=== PATIENT | male | born 1935 | race Caucasian/White ===

== ENCOUNTER 2019-08-07 11:56 | Inpatient (IN) | payer MEDICARE, BC, SELFPAY ==
[2019-08-07] VITALS (14 sets, daily range): BP systolic 94–126; BP diastolic 46–75; PULSE 67–92; RESP 14–27; TEMP 36.3–36.9; O2SAT 90–100; BMI 20.1
--- NOTE | 2019-08-07 11:59 | ED_ITS ---
Entered by Leia Cordero, acting as scribe for Ginger Abdullahi Joni HPI - SOB/Dyspnea General: Chief Complaint: Shortness of Breath/Dyspnea Stated Complaint: Shortness of Breath Time Seen by Provider: 08/07/19 11:57 Source: patient and EMS Mode of arrival: EMS Limitations: no limitations and physical limitation History of Present Illness: HPI Narrative: 84 yo male presents to ED with complaints of shortness of breath. The patient states he is normally short of breath but he woke this morning with worsening symptoms with lower extremity swelling. The patient is a resident of [facility]. He is normally on 2L oxygen but was placed on 4L while in ambulance, which improved his shortness of breath. The patient states he is more concerned with his swollen lower legs than his shortness of breath. MD elicited complaint: shortness of breath Onset (ago): hour(s) Timing: constant Severity: severe Exacerbating factors: lying flat, exertion, movement, coughing, inspiration and talking Relieving factors: oxygen Associated symptoms: Reports chest congestion and other (lower extremity swelling); Deny abdominal pain, chest pain, diaphoresis, dizziness, extremity pain, fever(s), hemoptysis, nausea, orthopnea, palpitations, polydipsia, syncope or vomiting Treatment prior to arrival: oxygen Related Data: Home oxygen amount: 2 liters Review of Systems General: Reports: other (negative unless marked) Const: Denies: fever, chills, body aches, fatigue, malaise or diaphoresis Eyes: Denies: change in vision or blurry vision ENMT: Denies: throat pain, painful swallowing, hoarseness, ear pain, ear discharge, Change in hearing or nasal discharge Card: Denies: chest pain, palpitations, irregular heart rhythm, syncope, pre- syncope, shortness of breath on exertion or shortness of breath when lying down Resp: Reports: shortness of breath, productive cough, wheezing, change in phlegm color and chest congestion; Denies: coughing up blood GI: Denies: abdominal pain, nausea, vomiting, vomiting blood, coffee grounds in vomit, diarrhea, constipation, cramping, blood in stool or black tarry stool : Denies: flank pain, difficulty urinating, painful urination, urinary frequency, urinary urgency, decreased urine ouput, urinary incontinence or blood in urine Musc: Denies: neck pain, back pain, extremity pain, joint pain, joint swelling, joint warmth or joint stiffness Skin/Breast: Denies: rash, skin tenderness or yellow skin Neuro: Denies: headache, numbness in extremities, weakness in extremities, changes in sensation, lack of coordination, difficulty walking, dizziness, vertigo or confusion Endo: Denies: excessive thirst, tired all the time, cold intolerance, excessive sweating, flushing or hot flashes Alexey/Lymph: Denies: easy bruising, easy bleeding, petechiae or enlarged lymph nodes All/Imm: Denies: hives, throat swelling, tongue swelling, facial swelling or acute wheezing PFSH ED PFSH: Statuses (acute, chronic, etc) shown below reflect problem list status as previously entered and may not be historically accurate Family History Brother Cancer Diabetes CAD (coronary artery disease) Myocardial infarct Father Parkinson disease Social History Smoking and tobacco status: former smoker Alcohol intake: unknown Marital status: Single Physical Exam Resp: EFFORT & INSPECTION: Yes respiratory distress AUSCULTATION: crackles, rhonchi, wheezes and diminished lung sounds Course Vital Signs: Vital signs: Vital Signs Temperature 97.4 F L 08/07/19 11:58 Pulse Rate 84 08/07/19 12:35 Respiratory Rate 20 H 08/07/19 12:35 Blood Pressure 94/46 08/07/19 11:58 Pulse Oximetry 92 08/07/19 12:27 MDM - SOB/Dyspnea MDM Narrative: Medical decision making narrative: Mr. Echeverria is a complex patient with having COPD and congestive heart failure. He also has lung cancer. I see no evidence of DVT on his ultrasound and is not complaining of any sharp chest pain. I do not believe him to have a PE as he has wheezing and orthopnea and no DVT on ultrasound. The patient has no chest pain or hemoptysis. The patient has a cough that is productive of green-colored sputum and I believe his symptoms are most related to a COPD exacerbation. He is refusing an ABG. His kidney function is borderline and I do not believe it would be a good idea to CT his chest as I believe it could hurt his kidneys further. I endorsed the case in full to Dr. Handley he is agreeable to admit the patient for further evaluation and care. Lab Data: Attestation: I reviewed the patient's lab results. Labs: Lab Results 08/07/19 08/07/19 08/07/19 Range/Units 12:18 12:18 12:18 WBC 12.2 H (4.0-10.0) 10^3/ uL RBC 3.63 L (4.1-5.3) 10^6/u L Hgb 10.2 L (11.7-16.6) g/dL Hct 33.1 L (42.0-52.0) % MCV 91.2 (80-94) fL MCH 28.1 (28.0-34.0) pg MCHC 30.8 (30.0-36.0) g/dL RDW 25.7 H (12.1-15.1) % Plt Count 195 (130-400) 10^3/c mm MPV 9.2 (7.4-10.4) fL Neut % (Auto) 78.7 % Lymph % (Auto) 10.9 % [place] % (Auto) 9.1 % Eos % (Auto) 0.6 % Baso % (Auto) 0.3 % Neut # (Auto) 9.6 H (1.8-7.7) 10^3/u L Lymph # (Auto) 1.3 (0.8-4.8) 10^3/u L [place] # (Auto) 1.1 H (0.2-0.9) 10^3/u L Eos # (Auto) 0.1 (0.0-0.8) 10^3/u L Baso # (Auto) 0.0 (0.0-0.1) 10^3/u L Nucleated RBC % (a uto) 0.2 % Nucleated RBCs # 0.0 /100WBC APTT 35.7 (23.9-36.7) SECO NDS Sodium 137 (136-145) mmol/L Potassium 3.9 (3.5-5.1) mmol/L Chloride 98 (98-107) mmol/L Carbon Dioxide 26 (22-29) mmol/L Anion Gap 16.9 (5-19) BUN 32 H (8-23) mg/dL Creatinine 1.6 H (0.7-1.2) mg/dL Glucose 128 H (74-106) mg/dL Lactic Acid (0.5-2.2) mmol/L Calcium 8.9 (8.8-10.2) mg/Dl Magnesium 2.6 H (1.7-2.3) mg/dL Total Bilirubin 0.9 (0.15-1.2) mg/dL AST 17 (0-40) U/L ALT 16 (0-41) U/L Alkaline Phosphata se 98 (40-130) IU/L NT-Pro-B Natriuret Pep 54874 H (0-450) pg/mL Total Protein 5.8 L (6.6-8.7) g/dL Albumin 3.5 (3.5-5.2) g/dL Globulin 2.3 (1.3-4.6) g/dL Urine Color (Yellow) Urine Appearance (CLEAR) Urine pH (5-7) Ur Specific Gravit y (1.005-1.030) Urine Protein (Negative) Urine Glucose (UA) (Normal) Urine Ketones (Negative) Urine Occult Blood (Negative) Urine Nitrate (Negative) Urine Bilirubin (NEGATIVE) Urine Urobilinogen (Negative) mg/dL Ur Leukocyte Anni ase (Negative) Urine RBC (0-2) /hpf Urine WBC (0-5) /hpf Ur Squamous Epith Cells (0-5) Urine Bacteria (NONE) Hyaline Casts 08/07/19 08/07/19 Range/Units 12:18 13:00 WBC (4.0-10.0) 10^3/ uL RBC (4.1-5.3) 10^6/u L Hgb (11.7-16.6) g/dL Hct (42.0-52.0) % MCV (80-94) fL MCH (28.0-34.0) pg MCHC (30.0-36.0) g/dL RDW (12.1-15.1) % Plt Count (130-400) 10^3/c mm MPV (7.4-10.4) fL Neut % (Auto) % Lymph % (Auto) % [place] % (Auto) % Eos % (Auto) % Baso % (Auto) % Neut # (Auto) (1.8-7.7) 10^3/u L Lymph # (Auto) (0.8-4.8) 10^3/u L [place] # (Auto) (0.2-0.9) 10^3/u L Eos # (Auto) (0.0-0.8) 10^3/u L Baso # (Auto) (0.0-0.1) 10^3/u L Nucleated RBC % (a uto) % Nucleated RBCs # /100WBC APTT (23.9-36.7) SECO NDS Sodium (136-145) mmol/L Potassium (3.5-5.1) mmol/L Chloride (98-107) mmol/L Carbon Dioxide (22-29) mmol/L Anion Gap (5-19) BUN (8-23) mg/dL Creatinine (0.7-1.2) mg/dL Glucose (74-106) mg/dL Lactic Acid 2.2 (0.5-2.2) mmol/L Calcium (8.8-10.2) mg/Dl Magnesium (1.7-2.3) mg/dL Total Bilirubin (0.15-1.2) mg/dL AST (0-40) U/L ALT (0-41) U/L Alkaline Phosphata se (40-130) IU/L NT-Pro-B Natriuret Pep (0-450) pg/mL Total Protein (6.6-8.7) g/dL Albumin (3.5-5.2) g/dL Globulin (1.3-4.6) g/dL Urine Color Yellow (Yellow) Urine Appearance Cloudy (CLEAR) Urine pH 6 (5-7) Ur Specific Gravit y 1.010 (1.005-1.030) Urine Protein 1+ H (Negative) Urine Glucose (UA) Norm (Normal) Urine Ketones Negative (Negative) Urine Occult Blood 3+ H (Negative) Urine Nitrate Negative (Negative) Urine Bilirubin Neg (NEGATIVE) Urine Urobilinogen 1 H (Negative) mg/dL Ur Leukocyte Anni ase 2+ H (Negative) Urine RBC 5-10 H (0-2) /hpf Urine WBC Too numerous to c nt H (0-5) /hpf Ur Squamous Epith Cells None (0-5) Urine Bacteria 2+ H (NONE) Hyaline Casts 0-4 H Discharge Plan Discharge Patient Disposition: Admitted As Inpatient Clinical Impression: Acute exacerbation of chronic obstructive airways disease, Congestive heart failure Condition: Stable Prescriptions: No Action amiodarone 100 mg tablet 100 mg PO ONCE RF: 0 aspirin [Adult Low Dose Aspirin] 81 mg tablet,delayed release (DR/EC) 81 mg PO ONCE RF: 0 citalopram 10 mg tablet 10 mg PO ONCE RF: 0 desloratadine 5 mg tablet 5 mg PO ONCE RF: 0 docusate sodium 100 mg capsule 100 mg PO BID RF: 0 esomeprazole magnesium 40 mg capsule,delayed release(DR/EC) 40 mg PO ONCE RF: 0 ferrous sulfate 325 mg (65 mg iron) tablet 325 mg PO BID RF: 0 furosemide 40 mg tablet 40 mg PO BID RF: 0 ipratropium bromide 42 mcg (0.06 %) spray,non-aerosol 2 spray INTRANASAL TID RF: 0 potassium chloride [Klor-Con 10] 10 mEq tablet extended release 20 meq PO BID RF: 0 levothyroxine 112 mcg capsule 112 mcg PO ONCE RF: 0 loratadine [Allergy Relief (loratadine)] 10 mg tablet 10 mg PO ONCE RF: 0 nitroglycerin [Nitrostat] 0.4 mg tablet, sublingual 0.4 mg SUBLINGUAL Q5M PRNRF: 0 oxycodone-acetaminophen [Percocet] 5-325 mg tablet 1 tab PO Q6H PRNRF: 0 rosuvastatin 5 mg tablet 5 mg PO ONCE RF: 0 fluticasone propion-salmeterol [Advair Diskus] 500-50 mcg/dose blister with device 1 inh INHALATION BID RF: 0 Referrals: Edil Vanegas MD [Primary Care Provider] - Coding Level of Care Code ED Ballast Regulator Operator for g Fwd The documentation recorded by the Consuelo rod Valerie R accurately reflects the service I personally performed and the decisions made by Kaylen vazquez Eli N Aug 07, 2019 11:56
--- NOTE | 2019-08-07 12:03 | USCV_ITS ---
Safialakisha Atif Age: 84 Gender: M : 1935 Exam Date: 08/07/2019 12:43 Ordering Phys: Ginger Abdullahi DO Technologist: Alena Neri [place] [facility] [place]ication: SWOLLEN LEGS HISTORY: Swollen Legs PROCEDURES: Venous duplex imaging was performed in bilateral lower extremities. The following venous structures were evaluated: common femoral vein, profunda vein, proximal portion of the greater saphenous vein, superficial femoral vein, and the popliteal vein. In addition, the posterior tibial and peroneal trunk were evaluated. Serial compression, augmentation maneuvers, and spectral Doppler flow evaluation were performed. FINDINGS: No DVT seen in any vessel examined CONCLUSIONS No evidence of right lower extremity DVT. No evidence of left lower extremity DVT. Giles Lea MD (Electronically Signed) Final Date: 07 August 2019 14:21 S
--- NOTE | 2019-08-07 12:05 | XR_ITS ---
WS: [id number] CHEST XRAY TECHNIQUE: Portable chest. CLINICAL INFORMATION: cough COMPARISON: July 01, 2019 FINDINGS: Heart: Cardiomegaly. Sternotomy. Cardiac pacer. Lungs: Chronic emphysematous changes with interstitial infiltrates. No focal pneumonia. Bones: Normal visualized bony structures. XR/XR chest 1V portable [id number] IMPRESSION: 1. Diffuse bilateral interstitial infiltrates suspicious for interstitial pneu monitis. No focal pneumonia. 2. Sternotomy with cardiomegaly
[2019-08-07 12:25] LABS: Basophils % 0.3 %; Eosinophils # 0.1 10^3/uL (0.0-0.8); Eosinophils % 0.6 %; Hematocrit 33.1 % (42.0-52.0); Hemoglobin 10.2 g/dL (11.7-16.6); Lymphocytes # 1.3 10^3/uL (0.8-4.8); Lymphocytes % 10.9 %; Mean Corpuscular HGB Conc 30.8 g/dL (30.0-36.0); Mean Corpuscular Hemoglobin 28.1 pg (28.0-34.0); Mean Corpuscular Volume 91.2 fL (80-94); Mean Platelet Volume 9.2 fL (7.4-10.4); Monocytes # 1.1 10^3/uL (0.2-0.9); Monocytes % 9.1 %; Neutrophils # 9.6 10^3/uL (1.8-7.7); Neutrophils % 78.7 %; Nucleated Red Blood Cells % 0.2 %; Platelet Count 195 10^3/cmm (130-400); Red Blood Count 3.63 10^6/uL (4.1-5.3); Red Cell Distribution Width 25.7 % (12.1-15.1); White Blood Count 12.2 10^3/uL (4.0-10.0)
[2019-08-07] MEDS: ipratropium-albuterol 3 mL Neb 9 ML INHALATION (12:27)
[2019-08-07 12:40] LABS: Partial Thromboplastin Time 35.7 SECONDS (23.9-36.7)
[2019-08-07 12:42] LABS: Lactic Sepsis W/Reflex 2.2 mmol/L (0.5-2.2)
[2019-08-07 12:52] LABS: Alanine Aminotransferase 16 U/L (0-41); Albumin Level 3.5 g/dL (3.5-5.2); Alkaline Phosphatase 98 IU/L (40-130); Anion Gap 16.9 (5-19); Aspartate Amino Transferase 17 U/L (0-40); Blood Urea Nitrogen 32 mg/dL (8-23); Calcium 8.9 mg/Dl (8.8-10.2); Carbon Dioxide 26 mmol/L (22-29); Chloride 98 mmol/L (98-107); Globulin 2.3 g/dL (1.3-4.6); Glucose 128 mg/dL (74-106); Magnesium 2.6 mg/dL (1.7-2.3); NT Pro B Type Natriuretic Pept 10886 pg/mL (0-450); Potassium 3.9 mmol/L (3.5-5.1); Sodium 137 mmol/L (136-145); Total Bilirubin 0.9 mg/dL (0.15-1.2); Total Protein 5.8 g/dL (6.6-8.7)
[2019-08-07 13:13] LABS: Urine Appearance Cloudy (CLEAR); Urine Color Yellow (Yellow); pH Urine 6 (5-7)
[2019-08-07 13:14] LABS: Bilirubin Urine Neg (NEGATIVE); Blood Urine 3+ (Negative); Glucose Urine UA Norm (Normal); Ketones Urine Negative (Negative); Leukocyte Esterase Urine 2+ (Negative); Nitrate Urine Negative (Negative); Protein Urine 1+ (Negative); Urobilinogen Urine 1 mg/dL (Negative)
[2019-08-07] MEDS: FUROsemide 10 mg/mL SDV 4mL 40 MG IVP ×2 (13:21→22:02)
[2019-08-07 13:27] LABS: WBC Urine TOO NUMEROUS TO CNT /hpf (0-5)
[2019-08-07 13:28] LABS: Bacteria Urine 2+; Hyaline Casts Urine 0-4
[2019-08-07 13:29] LABS: Add Urine Culture? Yes
[2019-08-07 14:10] LABS: Reflex Lactate Order Y
--- NOTE | 2019-08-07 15:02 | P.HP_ITS ---
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 Patient states he is here in the emergency room because bilateral lower extremity swelling, that has worsened, over the past few days. He has had increased shortness of breath, shortness of breath with minimal exertion, nonproductive cough, low-grade temperatures 99, chills, no nausea, no vomiting, no abdominal pain, no bloody stools, no hematuria. Patient states that he is recently diagnosed with bladder cancer through Dr. Youssef, Dr. Youssef states that he cannot have any interventions as he is currently sick from his heart failure and COPD. I spoke to patient's nurse at his assisted living facility, she is tells me that for the past few months patient's been short of breath, has bilateral lower extremity swelling, patient has used up to 120 mg of Lasix once daily, without any significant benefit, continues to have lower extremity swelling, shortness of breath at rest with exertion, patie nt was supposed to see cardiology as outpatient, but as he was sick, he could not make the appointment. No bloody stools, no hematuria, no hemoptysis. Patient recently finished treatment for his lung cancer, received radiation therapy. Assisted care facility does state that he has been using up to 3 L of oxygen. Review of Systems Const: Reports: fever and chills Card: Reports: lightheadedness; Denies: chest pain, palpitations or irregular heart rhythm Resp: Reports: shortness of breath and non-productive cough GI: Denies: abdominal pain, nausea or vomiting : Denies: difficulty urinating, painful urination, urinary urgency or urinary hesitancy Musc: Denies: back pain Skin/Breast: Denies: rash Neuro: Denies: headache Endo: Denies: excessive urination Medications/Allergies Allergies Allergy/AdvReac Type Severity Reaction Status Date / Time amoxicillin Allergy Unknown Unknown Verified 08/07/19 14:18 Penicillins Allergy Unknown Unknown Verified 08/07/19 14:18 Sulfa (Sulfonamide Allergy Unknown Unknown Verified 08/07/19 14:18 Antibiotics) Additional Medication Information Additional Medication Information: Aspirin 81 mg once daily Plavix 75 mg once daily Amiodarone 100 mg once daily Citalopram esomperozole Levothyroxine 102 mill micrograms once daily Furosemide 40 mg p.o. twice daily Oxycodone 11/28/2024 1 tab every 4 as needed Klor-Con 20 mg twice daily Rosuvastatin 5 mg p.o. bedtime PFSH Acute PFSH: Statuses (acute, chronic, etc) shown below reflect problem list status as previously entered and may not be historically accurate Medical History (Updated 08/07/19 @ 15:30 by Ajit Handley MD) Hernia, inguinal, bilateral (Acute) Pacemaker (Acute) Pulmonary HTN (Acute) Surgical History (Updated 08/07/19 @ 15:30 by Ajit Handley MD) H/O rotator cuff surgery (Acute) History of angioplasty of peripheral vessel (Acute) History of carpal tunnel surgery (Acute) Hx of endarterectomy (Acute) S/P CABG x 4 (Acute) Family History Brother Cancer Diabetes CAD (coronary artery disease) Myocardial infarct Father Parkinson disease Social History Smoking and tobacco status: former smoker Alcohol intake: unknown Marital status: Single Vitals/I&O/Wt Last Vital Signs Temp 97.4 F L 08/07/19 11:58 Pulse 79 08/07/19 14:10 Resp 23 H 08/07/19 14:10 BP 116/67 08/07/19 14:10 Pulse Ox 91 08/07/19 14:10 Weight last 48 hrs Weight 71.214 kg Physical Exam Const: COMMON NORMALS: no apparent distress GENERAL APPEARANCE: cooperative HENMT: COMMON NORMALS: normocephalic Eye: COMMON NORMALS: PERRL and EOMs intact bilaterally Neck/C-Spine: COMMON NORMALS: full ROM and no lymphadenopathy Lymph: LYMPHATIC: no lymphadenopathy noted Chest: COMMONS NORMALS: inspection of chest normal Resp: COMMON NORMALS: normal respiratory effort, no retractions and no use of accessory muscles EFFORT & INSPECTION: Yes pursed lip breathing AUSCULT ATION: wheezes inspiratory wheezes Cardio: COMMON NORMALS: no JVD, regular rate, regular rhythm, S1 normal heart sound, S2 normal heart sound and no murmurs GI: COMMON NORMALS: normal to inspection, nondistended, normoactive bowel sounds, soft to palpation, non-tender and no hepatosplenomegaly : COMMON NORMALS: Yes no CVA tenderness Back/Pelvis: COMMON NORMALS: no CVA tenderness Extremity: COMMON NORMALS: full ROM and normal capillary refill OTHER: Bilateral 2+ pitting edema Neuro: COMMON NORMALS: oriented x3, CN's II-XII intact bilaterally and moves all extremities Psych: COMMON NORMALS: mental status grossly normal Skin: COMMON NORMALS: no rashes or lesions noted Data Micro: Micro: Microbiology 08/07/19 13:08 Blood Culture - Pr eliminary Blood SPECIMEN [facility] 08/07/19 12:18 Blood Culture - Pr eliminary Blood SPECIMEN [facility] A&P Assessment and plan (1) Acute respiratory failure: Multifactorial: Secondary to dilated cardiomyopathy, systolic CHF, severe pulmonary hypertension, COPD exacerbation Plan: -Lasix 40 mg 3 times daily -Solu-Medrol -Rocephin and azithromycin -DuoNebs -Oxygen therapy -Fluid restrictions Status: Acute Code(s): J96.00 - Acute respiratory failure, unspecified whether with hypoxia or hypercapnia (2) COPD (chronic obstructive pulmonary disease): 2 L oxygen dependent, using up to 3 L at home- Status: Acute Code(s): J44.9 - Chronic obstructive pulmonary disease, unspecified (3) Systolic CHF with reduced left ventricular function, NYHA class 3: -Patient had an echocardiogram on 05/17/2018, which showed a reduced ejection fraction 28%, patient's ejection fraction has been steadily declining from 45% down to 28% -Patient was supposed to follow-up with cardiology on last discharge, was supposed to have a cardiac stress test, however it did not come to fruition -We will repeat cardiac echocardiogram, troponins, EKG Status: Acute Code(s): I50.20 - Unspecified systolic (congestive) heart failure (4) Dilated cardiomyopathy: Status: Acute Code(s): I42.0 - Dilated cardiomyopathy (5) Atrial fibrillation: -Continue amiodarone, on aspirin -Not on anticoagulation due to GI bleeds Status: Acute Code(s): I48.91 - Unspecified atrial fibrillation (6) Hypertension: Status: Acute Code(s): I10 - Essential (primary) hypertension (7) Hyperlipidemia: Status: Acute Code(s): E78.5 - Hyperlipidemia, unspecified (8) Peripheral arterial disease: On Plavix Status: Acute Code(s): I73.9 - Peripheral vascular disease, unspecified (9) Bilateral carotid artery stenosis: Status: Acute Code(s): I65.23 - Occlusion and stenosis of bilateral carotid arteries (10) Bladder cancer: -Recently diagnosed with bladder cancer by Dr. 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: -Status post radiation therapy Status: Acute Code(s): C34.91 - Malignant neoplasm of unspecified part of right bronchus or lung (12) Hypothyroidism: Status: Acute Code(s): E03.9 - Hypothyroidism, unspecified (13) Anemia: -Patient's hemoglobin has steadily been declining, last hemoglobin 10.2, denies bloody stools, denies black stools -Has a history of gross hematuria secondary to bladder cancer, denies current hematuria -Continue aspirin and Plavix due to concerns for worsening ejection fraction, place patient on Protonix Plan: -We will do anemia work-up -monitor hemoglobin Status: Acute Code(s): D64.9 - Anemia, unspecified Attestations Medical Necessity Statement*: Patient requires continued hospitalization, greater than 2 midnights, for acute respiratory failure Coding Level of Care Code Acute Linux Security Administrator for [facility] Diagnoses Acute respiratory failure J96.00 COPD (chronic obstructive pulmonary disease) J44.9 Systolic CHF with reduced left ventricular function, NYHA class 3 I50.20 Dilated cardiomyopathy I42.0 Atrial fibrillation I48.91 Hypertension I10 Hyperlipidemia E78.5 Peripheral arterial disease I73.9 Bilateral carotid artery stenosis I65.23 Bladder cancer C67.9 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
--- NOTE | 2019-08-07 15:16 | ECG_ITS ---
Measurements Intervals [place] Rate: 80 P: 90 FL: 236 QRS: 238 QRSD: 120 T: 93 QT: 375 QTc: 433 ELECTRONIC ATRIAL PACEMAKER LEFT POSTERIOR FASCICULAR BLOCK [QRS AXIS > 109, INFERIOR Q] Poor R wave progression. Nonspecific ST-T changes. Compared to ECG 07/01/2019 17:43:19 Left posterior fascicular block now present ST (T wave) deviation now present Right-axis deviation no longer present Left bundle-branch block no longer present Electronically Signed On 08-08-2019 16:42:18 DIRECTOR OF HEALTHCARE SYSTEMS by Yuval Dong M.D. [id number]
[2019-08-07 15:55] LABS: Troponin(5th) Baseline 78 ng/mL (0-15)
[2019-08-07] MEDS: cefTRIAXone 1,000 MG in sodium chloride 0.9% (plus) 50 ML 100 MG IV (16:16)
[2019-08-07] MEDS: morphine 4 mg/mL SDV 1 mL 2 MG IVP (16:28)
[2019-08-07] MEDS: azithromycin 500 MG in sodium chloride 0.9% 250 ML 250 MG IV (16:31)
--- NOTE | 2019-08-07 17:16 | ECG_ITS ---
Measurements Intervals [place] Rate: 77 P: -36 CT: 105 QRS: 243 QRSD: 121 T: 95 QT: 400 QTc: 454 SINUS RHYTHM WITH SHORT CT INTERVAL RIGHT AXIS DEVIATION [QRS AXIS > 100] ANTERIOR MYOCARDIAL INFARCTION , PROBABLY OLD [40+ ms Q WAVE AND/OR ST/T ABNORMALITY IN V3/V4] POSSIBLE INFERIOR MYOCARDIAL INFARCTION , PROBABLY OLD [30 ms Q WAVE IN II/aVF] Compared to ECG 07/01/2019 17:43:[address] interval now present Myocardial infarct finding now present Atrial-paced complex(es) or rhythm no longer present Left bundle-branch block no longer present Electronically Signed On 08-08-2019 16:48:57 ENTRY LEVEL ACCOUNT EXECUTIVE by Yuval Dong M.D. [id number]
[2019-08-07 17:30] LABS: Lactate (Lactic Acid level) 2.6 mmol/L (0.5-2.2)
[2019-08-07 17:51] LABS: Troponin 5 2HR 70.82 ng/mL (0-15)
[2019-08-07 17:54] LABS: Troponin 5 2HR Delta -7.18 ABS# (0-10)
[2019-08-07] MEDS: ipratropium-albuterol 3 mL Neb INHALATION ×2 (21:09→23:31)
--- NOTE | 2019-08-07 21:16 | ECG_ITS ---
Measurements Intervals [place] Rate: 77 P: 135 VT: 248 QRS: 187 QRSD: 127 T: 111 QT: 423 QTc: 482 ELECTRONIC ATRIAL PACEMAKER LEFT POSTERIOR FASCICULAR BLOCK [QRS AXIS > 109, INFERIOR Q] Poor R wave progression ST DEPRESSION, CONSIDER SUBENDOCARDIAL INJURY [0.1+ mV ST DEPRESSION] Compared to ECG 07/01/2019 17:43:19 Left posterior fascicular block now present Myocardial infarct finding now present ST (T wave) deviation now present Right-axis deviation no longer present Left bundle-branch block no longer present Electronically Signed On 08-08-2019 16:51:06 BUGGY LOADER by Yuval Dong M.D. [id number]
[2019-08-07 21:56] LABS: Troponin 5 6HR 61.48 ng/L (0-15)
[2019-08-07] MEDS: ferrous sulfate EC 325 mg Tablet PO (22:00)
[2019-08-07] MEDS: docusate sodium 100 mg Capsule PO (22:00)
[2019-08-07] MEDS: oxyCODONE-APAP 5-325 mg Tablet 1 TAB PO (22:01)
[2019-08-07] MEDS: enoxaparin 40 mg/0.4 mL Syringe SUBCUT (22:01)
[2019-08-07] MEDS: pantoprazole 40 mg SDV IVP (22:02)
[2019-08-07 22:18] LABS: Ferritin 73 ng/mL (30-400); Iron 37 ug/dL (59-158); Percent Saturation 15.1 % (20-50); Total Iron Binding Capacity 244 mg/dL; Unsaturated Iron Binding 207 ug/dL (112-347)
[2019-08-07 22:35] LABS: ABG PCO2 33.3 mmHg (35-45); ABG PH Result 7.49 (7.35-7.45); Arterial Blood Gas Hematocrit 31.4 % (42-52); Blood Gas Allen Test Pos; Blood Gas LPM 3.5 %; Blood Gas Sample Site Brachial, right; Blood Gas Sample Type Arterial; HCO3 ABG 25.1 mmol/L (22-26); PO2 ABG 60.6 mmHg (80.0-100.0)
--- NOTE | 2019-08-07 22:49 | PM.EVENT ---
Event Note Event Note: Called with patient having increasing work of breathing and increased oxygen need. ABG is as follows: Laboratory Tests 08/07/19 22:22 ABG pH 7.49 H ABG pCO2 33.3 L ABG pO2 60.6 L ABG HCO3 25.1 O2 Liters/Min 3.5 We will put him on some BiPAP therapy. He has received steroids, breathing treatments as well as IV diuresis. Since arrival to the floor he has only had about 150 ml of urine output but he is only been there a little over an hour. We will add some inhaled steroids. Need to monitor closely for tiring out. Chest x-ray earlier today was personally reviewed by me. Plan discussed with nursing staff.
[2019-08-07 23:27] LABS: Influenza A by IFA Negative (Negative); Influenza B by IFA Negative (Negative)
[2019-08-07] MEDS: budesonide 0.5 mg/2 mL Neb INHALATION (23:31)
[2019-08-08] VITALS (17 sets, daily range): BP systolic 99–128; BP diastolic 50–78; PULSE 77–97; RESP 18–22; TEMP 36.6–36.8; O2SAT 89–98
[2019-08-08] MEDS: ipratropium-albuterol 3 mL Neb INHALATION ×5 (03:22→20:12)
--- NOTE | 2019-08-08 03:25 | PC.RESP ---
BIPAP ON STAND BY. PT ON 5 LPM OXYMASK
[2019-08-08 05:56] LABS: Hematocrit 33.7 % (42.0-52.0); Hemoglobin 10.1 g/dL (11.7-16.6); Lymphocytes # 0.4 10^3/uL (0.8-4.8); Lymphocytes % 5.3 %; Mean Corpuscular Hemoglobin 27.8 pg (28.0-34.0); Mean Corpuscular Volume 92.8 fL (80-94); Mean Platelet Volume 9.9 fL (7.4-10.4); Monocytes # 0.3 10^3/uL (0.2-0.9); Monocytes % 3.4 %; Neutrophils # 6.6 10^3/uL (1.8-7.7); Neutrophils % 90.8 %; Nucleated Red Blood Cells % 0 %; Platelet Count 179 10^3/cmm (130-400); Red Blood Count 3.63 10^6/uL (4.1-5.3); Red Cell Distribution Width 25.9 % (12.1-15.1); White Blood Count 7.3 10^3/uL (4.0-10.0)
[2019-08-08 06:21] LABS: Alanine Aminotransferase 15 U/L (0-41); Albumin Level 3.3 g/dL (3.5-5.2); Alkaline Phosphatase 92 IU/L (40-130); Anion Gap 17.5 (5-19); Aspartate Amino Transferase 15 U/L (0-40); Blood Urea Nitrogen 34 mg/dL (8-23); Calcium 9.2 mg/Dl (8.8-10.2); Carbon Dioxide 25 mmol/L (22-29); Chloride 99 mmol/L (98-107); Globulin 2.5 g/dL (1.3-4.6); Glucose 161 mg/dL (74-106); Magnesium 2.8 mg/dL (1.7-2.3); Phosphorus 3.6 mg/dL (2.5-4.5); Potassium 4.5 mmol/L (3.5-5.1); Sodium 137 mmol/L (136-145); Total Bilirubin 0.6 mg/dL (0.15-1.2); Total Protein 5.8 g/dL (6.6-8.7)
[2019-08-08] MEDS: FUROsemide 10 mg/mL SDV 4mL 40 MG IVP ×3 (06:50→18:27)
[2019-08-08] MEDS: budesonide 0.5 mg/2 mL Neb INHALATION ×2 (08:14→20:15)
--- NOTE | 2019-08-08 08:36 | PC.RESP ---
lindsay on standby at this time id # [id number]
[2019-08-08] MEDS: pantoprazole 40 mg SDV IVP ×2 (09:03→18:27)
[2019-08-08] MEDS: amiodarone 200 mg Tablet 100 MG PO (11:04)
[2019-08-08] MEDS: levothyroxine 112 mcg Tablet PO (11:05)
[2019-08-08] MEDS: citalopram 20 mg Tablet 10 MG PO (11:05)
[2019-08-08] MEDS: atorvastatin 40 mg Tablet 20 MG PO (11:06)
[2019-08-08] MEDS: ferrous sulfate EC 325 mg Tablet PO ×2 (11:06→18:14)
[2019-08-08] MEDS: predniSONE 20 mg Tablet 40 MG PO (11:06)
[2019-08-08] MEDS: docusate sodium 100 mg Capsule PO ×2 (11:07→18:14)
[2019-08-08] MEDS: aspirin 81 mg EC Tablet PO (11:07)
[2019-08-08] MEDS: clopidogrel 75 mg Tablet PO (11:07)
[2019-08-08] MEDS: metOLazone 5 MG Tablet PO (11:11)
[2019-08-08] MEDS: bumetanide 0.25 mg/mL SDV 10 mL 2 MG IV (12:20)
[2019-08-08] MEDS: oxyCODONE-APAP 5-325 mg Tablet 1 TAB PO (12:21)
--- NOTE | 2019-08-08 13:20 | PC.RESP ---
bipap on standby
[2019-08-08 13:42] LABS: Blood Gas Drawn By MONRO; Oxygen Device NC
[2019-08-08] MEDS: azithromycin 500 MG in sodium chloride 0.9% 250 ML 250 MG IV (14:56)
--- NOTE | 2019-08-08 15:35 | P.PN_ITS ---
Subjective Subjective: Interval history: Overnight patient had episodes of respiratory distress, requiring BiPAP, did well Morning, patient is on 4 L nasal cannula, states that his breathing has significantly improved, no fevers, no chills, his swelling has significantly gone down, still some shortness of breath with exertion, no lightheadedness, no dizziness, no nausea, no vomiting, still has a sore throat and loss of voice secondary to his laryngitis Vitals/I&O/Wt Last Vital Signs Temp 97.8 F 08/08/19 11:54 Pulse 84 08/08/19 12:04 Resp 19 H 08/08/19 12:21 BP 106/54 08/08/19 11:54 Pulse Ox 92 08/08/19 11:54 08/08/19 08/08/19 08/08/19 06:59 14:59 22:59 Intake Total 240 / 240 Output Total 400 / 400 Balance -160 / -160 Weight last 48 hrs Weight 72.212 kg Weight 71.214 kg Physical Exam Const: COMMON NORMALS: no apparent distress and oriented x3 GENERAL APPEARANCE: cooperative Neck/C-Spine: COMMON NORMALS: full ROM, no lymphadenopathy and no JVD Lymph: LYMPHATIC: no lymphadenopathy noted Chest: COMMONS NORMALS: inspection of chest normal Resp: COMMON NORMALS: normal respiratory effort, no retractions and no use of accessory muscles EFFORT & INSPECTION: Yes pursed lip breathing AUSCULTATION: wheezes inspiratory wheezes Cardio: COMMON NORMALS: no JVD, regular rate, regular rhythm, S1 normal heart sound, S2 normal heart sound and no murmurs RATE: regular rate RHYTHM: regular rhythm HEART SOUNDS: S1 normal and S2 normal GI: COMMON NORMALS: normal to inspection, nondistended, normoactive bowel sounds, soft to palpation, non-tender and no hepatosplenomegaly PALPATION: Yes soft and Yes no hepatosplenomegaly Extremity: COMMON NORMALS: full ROM and normal capillary refill Neuro: COMMON NORMALS: oriented x3 Data Micro: Micro: Microbiology 08/07/19 13:08 Blood Culture - Pr eliminary Blood NEGATIVE TO SHANTI E 08/07/19 12:18 Blood Culture - Pr eliminary Blood NEGATIVE TO SHANTI E 08/08/19 09:20 Occult Blood (FIT) - Final Stool A&P Assessment and plan (1) Acute respiratory failure: Multifactorial: Secondary to dilated cardiomyopathy, systolic CHF, severe pulmonary hypertension, COPD exacerbation Plan: -I added one-time metolazone, bumetanide -Lasix 40 mg 3 times daily -Solu-Medrol -Rocephin and azithromycin -DuoNebs -Oxygen therapy -Fluid restrictions Status: Acute Code(s): J96.00 - Acute respiratory failure, unspecified whether with hypoxia or hypercapnia (2) COPD (chronic obstructive pulmonary disease): 2 L oxygen dependent, using up to 3 L at home- Status: Acute Code(s): J44.9 - Chronic obstructive pulmonary disease, unspecified (3) Systolic CHF with reduced left ventricular function, NYHA class 3: -Patient had an echocardiogram on 05/17/2018, which showed a reduced ejection fraction 28%, patient's ejection fraction has been steadily declining from 45% down to 28% -Patient was supposed to follow-up with cardiology on last discharge, was supposed to have a cardiac stress test, however it did not come to fruition -Repeat echocardiogram shows Severe diffuse hypokinesia left ventricular ejection fraction around 25%. Mildly dilated left ventricle. Mildly dilated right ventricle with diminished ejection fraction. Echodensity in the RV apex, suggestive of moderator band. Mild biatrial enlargement Moderately severe mitral and tricuspid regurgitation Severe pulmonary hypertension with estimated pulmonary artery peak systolic pressure of 83 mmHg. Echodensity in the right atrium, suggestive of prominent eustachian valve Moderate prolapse of the anterior mitral valve leaflet. Trace pulmonary valve regurgitation. Compared to the study from 05/13/2019, there may not be a significant change Plan: -Patient needs a stress test when his respiratory status is stable, will possibly try to do it on this admission to see if his decline in ejection fraction ischemic versus nonischemic, possibly some component radiation cardiomyopathy, vasculitis playing a role -The question is with his newly diagnosed bladder cancer, however good of a candidate would he be for cardiac interventions Status: Acute Code(s): I50.20 - Unspecified systolic (congestive) heart failure (4) Dilated cardiomyopathy: Status: Acute Code(s): I42.0 - Dilated cardiomyopathy (5) Atrial fibrillation: -Continue amiodarone, on aspirin -Not on anticoagulation due to GI bleeds Status: Acute Code(s): I48.91 - Unspecified atrial fibrillation (6) Hypertension: Status: Acute Code(s): I10 - Essential (primary) hypertension (7) Hyperlipidemia: Status: Acute Code(s): E78.5 - Hyperlipidemia, unspecified (8) Peripheral arterial disease: On Plavix Status: Acute Code(s): I73.9 - Peripheral vascular disease, unspecified (9) Bilateral carotid artery stenosis: Status: Acute Code(s): I65.23 - Occlusion and stenosis of bilateral carotid arteries (10) Bladder cancer: -Recently diagnosed with bladder cancer by Dr. 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: -Status post radiation therapy Status: Acute Code(s): C34.91 - Malignant neoplasm of unspecified part of right bronchus or lung (12) Hypothyroidism: Status: Acute Code(s): E03.9 - Hypothyroidism, unspecified (13) Anemia: -Patient's hemoglobin has steadily been declining, last hemoglobin 10.2, denies bloody stools, denies black stools -Has a history of gross hematuria secondary to bladder cancer, denies current hematuria -Continue aspirin and Plavix due to concerns for worsening ejection fraction, place patient on Protonix Plan: -Has component of iron deficiency anemia -monitor hemoglobin Status: Acute Code(s): D64.9 - Anemia, unspecified Attestations Medical Necessity Statement*: She requires continued hospitalization for acute respiratory failure is secondary to CHF Coding Level of Care Code 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
[2019-08-08] MEDS: cefTRIAXone 1,000 MG in sodium chloride 0.9% (plus) 50 ML 100 MG IV (18:13)
--- NOTE | 2019-08-08 18:51 | PC.PT ---
PT note, 1620 p.m.; patient declines attempted PT evaluation at this time, but states he would like to participate tomorrow, will reattempt then
--- NOTE | 2019-08-08 19:18 | USCV_ITS ---
Dakotah Atif Age: 84 Gender: M : 1935 Exam Date: 08/08/2019 07:24 Ordering Phys: Ajit Handley MD Technologist: Francisca Haywood Exam Location: [facility] – [place] Indication: Shortness of breath BP: 127 / 78 HR: 76 Rhythm: Sinus Technical Quality: Fair MEASUREMENTS (Male / Female) Normal Values 2D ECHO LV Diastolic Diameter PLAX 5.3 cm 4.2 - 5.9 / 3.9 - 5.3 cm LV Systolic Diameter PLAX 4.9 cm LV Chamber Size 5.8 cm IVS Diastolic Thickness 0.9 cm 0.6 - 1.0 / 0.6 - 0.9 cm IVS Systolic Thickness 1.2 cm LVPW Diastolic Thickness 0.9 cm 0.6 - 1.0 / 0.6 - 0.9 cm LVPW Systolic Thickness 1.0 cm RV Chamber Size 3.0 cm LVOT Diameter 2.0 cm LV Ejection Fraction 2D Teich 20.0 % LV Ejection Fraction MOD 2C 38.4 % LV Ejection Fraction 2C AL 40.9 % LA Diameter 4.9 cm LA Width 4.0 cm LA Height 6.2 cm RA Width 3.9 cm RA Height 6.0 cm Aorta at Sinotubular Diameter 2.1 cm M-MODE LV Diastolic Diameter MM 6.0 cm 4.2 - 5.9 / 3.9 - 5.3 cm LV Systolic Diameter MM 5.7 cm LV Ejection Fraction MM Teich 11.4 % IVS Diastolic Thickness MM 1.4 cm 0.6 - 1.0 / 0.6 - 0.9 cm IVS Systolic Thickness MM 1.4 cm LVPW Diastolic Thickness MM 0.9 cm 0.6 - 1.0 / 0.6 - 0.9 cm LVPW Systolic Thickness MM 1.0 cm RV Diastolic Diameter MM 2.2 cm Aortic Annulus Diameter 3.3 cm LA Ao Ratio MM 1.5 MV E Point Septal Separation 1.9 cm DOPPLER AV Peak Velocity 134.0 cm/s LVOT Peak Velocity 63.0 cm/s AV Area Cont Eq vti 1.6 cm squared AV Area Cont Eq pk 1.5 cm squared MV Area PHT 5.1 cm squared Mitral E to A Ratio 1.2 MV E' Velocity 9.0 cm/s Mitral E to MV E' Ratio 16.8 Mitral E to LV E' Lateral Ratio 13.2 Mitral E to LV E' Septal Ratio 22.9 TR Peak Velocity 427.0 cm/s TR Peak Gradient 59.8 mmHg TR Mean Velocity 340.7 cm/s TR Mean Gradient 48.4 mmHg TR Velocity Time Integral 147.6 cm TV Peak E Velocity 83.0 cm/s Right Atrial Pressure 8.0 mmHg Pulmonary Artery Systolic Pressu 80.9 mmHg PV Peak Velocity 68.0 cm/s RV Acceleration Time 0.1 s RV Ejection Time 0.3 s RV AcT/ET 0.3 FINDINGS Left Ventricle Severe diffuse hypokinesia left ventricular ejection fraction around 25%. Mildly dilated left ventricle. Right Ventricle Mildly dilated right ventricle with diminished ejection fraction. Echodensity in the RV apex, suggestive of moderator band Right Atrium Echodensity in the right atrium, suggestive of prominent eustachian valve Mildly increased right atrial size. Pacemaker wire in the right atrium right ventricle Left Atrium Mildly increased left atrial size. Mitral Valve Moderate prolapse of the anterior mitral valve leaflet. Moderate-severe mitral valve regurgitation. Aortic Valve Thickened aortic valve. Tricuspid Valve [id number] tricuspid valve regurgitation. Severe pulmonary hypertension with estimated pulmonary artery peak systolic pressure of 83 mmHg. Pulmonic Valve Trace pulmonary valve regurgitation. Pericardium No pericardial or pleural effusion. Aorta Normal aortic annulus size. CONCLUSIONS Severe diffuse hypokinesia left ventricular ejection fraction around 25%. Mildly dilated left ventricle. Mildly dilated right ventricle with diminished ejection fraction. Echodensity in the RV apex, suggestive of moderator band. Mild biatrial enlargement Moderately severe mitral and tricuspid regurgitation Severe pulmonary hypertension with estimated pulmonary artery peak systolic pressure of 83 mmHg. Echodensity in the right atrium, suggestive of prominent eustachian valve Moderate prolapse of the anterior mitral valve leaflet. Trace pulmonary valve regurgitation. Compared to the study from 05/13/2019, there may not be a significant change Dr Yuval Dong MD FACC (Electronically Signed) Final Date: 08 August 2019 14:49 S
--- NOTE | 2019-08-08 20:17 | PC.RESP ---
PT DID NOT WANT TO WEAR BIPAP AT THIS TIME
[2019-08-08] MEDS: enoxaparin 40 mg/0.4 mL Syringe SUBCUT (21:23)
[2019-08-09] VITALS (17 sets, daily range): BP systolic 92–111; BP diastolic 53–62; PULSE 63–92; RESP 16–24; TEMP 36.3–37.1; O2SAT 92–99
[2019-08-09] MEDS: FUROsemide 10 mg/mL SDV 4mL 40 MG IVP ×3 (04:05→20:22)
[2019-08-09 06:20] LABS: Basophils % 0.1 %; Eosinophils % 0.1 %; Hematocrit 36.7 % (42.0-52.0); Hemoglobin 11.3 g/dL (11.7-16.6); Lymphocytes # 1.5 10^3/uL (0.8-4.8); Lymphocytes % 9.9 %; Mean Corpuscular HGB Conc 30.8 g/dL (30.0-36.0); Mean Corpuscular Volume 91.1 fL (80-94); Mean Platelet Volume 9.3 fL (7.4-10.4); Monocytes # 1.1 10^3/uL (0.2-0.9); Monocytes % 7.5 %; Neutrophils # 12.2 10^3/uL (1.8-7.7); Neutrophils % 81.9 %; Nucleated Red Blood Cells % 0 %; Platelet Count 235 10^3/cmm (130-400); Red Blood Count 4.03 10^6/uL (4.1-5.3); Red Cell Distribution Width 26.2 % (12.1-15.1); White Blood Count 14.9 10^3/uL (4.0-10.0)
[2019-08-09 06:54] LABS: Alanine Aminotransferase 17 U/L (0-41); Albumin Level 3.9 g/dL (3.5-5.2); Alkaline Phosphatase 88 IU/L (40-130); Anion Gap 20.3 (5-19); Aspartate Amino Transferase 18 U/L (0-40); Blood Urea Nitrogen 38 mg/dL (8-23); Calcium 10.2 mg/Dl (8.8-10.2); Carbon Dioxide 28 mmol/L (22-29); Chloride 94 mmol/L (98-107); Globulin 2.3 g/dL (1.3-4.6); Glucose 91 mg/dL (74-106); Magnesium 2.5 mg/dL (1.7-2.3); Phosphorus 3.9 mg/dL (2.5-4.5); Potassium 4.3 mmol/L (3.5-5.1); Sodium 138 mmol/L (136-145); Total Bilirubin 0.7 mg/dL (0.15-1.2); Total Protein 6.2 g/dL (6.6-8.7)
[2019-08-09] MEDS: budesonide 0.5 mg/2 mL Neb INHALATION ×2 (07:33→20:01)
[2019-08-09] MEDS: ipratropium-albuterol 3 mL Neb INHALATION ×4 (07:33→20:01)
[2019-08-09] MEDS: aspirin 81 mg EC Tablet PO (09:31)
[2019-08-09] MEDS: clopidogrel 75 mg Tablet PO (09:32)
[2019-08-09] MEDS: levothyroxine 112 mcg Tablet PO (09:32)
[2019-08-09] MEDS: ferrous sulfate EC 325 mg Tablet PO ×2 (09:32→17:25)
[2019-08-09] MEDS: docusate sodium 100 mg Capsule PO ×2 (09:32→17:25)
[2019-08-09] MEDS: predniSONE 20 mg Tablet 40 MG PO (09:33)
[2019-08-09] MEDS: amiodarone 200 mg Tablet 100 MG PO (09:33)
[2019-08-09] MEDS: atorvastatin 40 mg Tablet 20 MG PO (09:34)
[2019-08-09] MEDS: citalopram 20 mg Tablet 10 MG PO (09:34)
[2019-08-09] MEDS: pantoprazole 40 mg SDV IVP (10:16)
[2019-08-09] MEDS: metOLazone 5 MG Tablet PO (10:17)
[2019-08-09] MEDS: cetylpyridinium Lozenge 1 EACH MUCOUS MEM (12:48)
[2019-08-09] MEDS: oxyCODONE-APAP 5-325 mg Tablet 1 TAB PO (12:48)
[2019-08-09] MEDS: bumetanide 0.25 mg/mL SDV 10 mL 2 MG IV (12:49)
[2019-08-09] MEDS: azithromycin 500 MG in sodium chloride 0.9% 250 ML 250 MG IV (13:01)
--- NOTE | 2019-08-09 14:14 | P.PN_ITS ---
Subjective Subjective: Interval history: This morning, patient sitting at the edge of the bed, states that his breathing has improved, his swelling has gone down, states that he would like a rib eye, still has a sore throat Vitals/I&O/Wt Last Vital Signs Temp 97.6 F 08/09/19 12:00 Pulse 89 08/09/19 12:00 Resp 24 H 08/09/19 12:48 BP 108/62 08/09/19 12:00 Pulse Ox 96 08/09/19 12:48 08/08/19 08/09/19 08/09/19 22:59 06:59 14:59 Intake Total 250 / 490 600 / 600 Output Total 1600 / 1999 725 / 2725 550 / 550 Balance -1350 / -1510 -725 / -2235 50 / 50 Weight last 48 hrs Weight 62.46 kg Weight 72.212 kg Physical Exam Const: COMMON NORMALS: no apparent distress and oriented x3 GENERAL APPEARANCE: cooperative Neck/C-Spine: COMMON NORMALS: no JVD Resp: COMMON NORMALS: normal respiratory effort, no retractions, no use of accessory muscles and clear to auscultation bilaterally AUSCULTATION: clear to auscultation bilaterally Cardio: COMMON NORMALS: no JVD, regular rate, regular rhythm, S1 normal heart sound, S2 normal heart sound and no murmurs RATE: regular rate RHYTHM: regular rhythm HEART SOUNDS: S1 normal and S2 normal GI: COMMON NORMALS: normal to inspection, nondistended, normoactive bowel sounds, soft to palpation, non-tender and no hepatosplenomegaly PALPATION: Yes soft and Yes no hepatosplenomegaly Neuro: COMMON NORMALS: oriented x3 Data Micro: Micro: Microbiology 08/07/19 13:08 Blood Culture - Pr eliminary Blood NEGATIVE TO SHANTI E 08/07/19 12:18 Blood Culture - Pr eliminary Blood NEGATIVE TO SHANTI E 08/08/19 09:20 Occult Blood (FIT) - Final Stool A&P Assessment and plan (1) Acute respiratory failure: Multifactorial: Secondary to dilated cardiomyopathy, systolic CHF, severe pulmonary hypertension, COPD exacerbation Plan: -I added one-time metolazone, bumetanide again today -Lasix 40 mg 3 times daily -Prednisone -Doxycycline -DuoNebs -Oxygen therapy -Fluid restrictions Status: Acute Code(s): J96.00 - Acute respiratory failure, unspecified whether with hypoxia or hypercapnia (2) COPD (chronic obstructive pulmonary disease): 2 L oxygen dependent, using up to 3 L at home- Status: Acute Code(s): J44.9 - Chronic obstructive pulmonary disease, unspecified (3) Systolic CHF with reduced left ventricular function, NYHA class 3: -Patient had an echocardiogram on 05/17/2018, which showed a reduced ejection fraction 28%, patient's ejection fraction has been steadily declining from 45% down to 28% -Patient was supposed to follow-up with cardiology on last discharge, was supposed to have a cardiac stress test, however it did not come to fruition -Repeat echocardiogram shows Severe diffuse hypokinesia left ventricular ejection fraction around 25%. Mildly dilated left ventricle. Mildly dilated right ventricle with diminished ejection fraction. Echodensity in the RV apex, suggestive of moderator band. Mild biatrial enlargement Moderately severe mitral and tricuspid regurgitation Severe pulmonary hypertension with estimated pulmonary artery peak systolic pressure of 83 mmHg. Echodensity in the right atrium, suggestive of prominent eustachian valve Moderate prolapse of the anterior mitral valve leaflet. Trace pulmonary valve regurgitation. Compared to the study from 05/13/2019, there may not be a significant change Plan: -Patient needs a stress test when his respiratory status is stable, will possibly try to do it on this admission to see if his decline in ejection fraction ischemic versus nonischemic, possibly some component radiation cardiomyopathy, vasculitis playing a role -The question is with his newly diagnosed bladder cancer, however good of a candidate would he be for cardiac interventions Status: Acute Code(s): I50.20 - Unspecified systolic (congestive) heart failure (4) Dilated cardiomyopathy: Status: Acute Code(s): I42.0 - Dilated cardiomyopathy (5) Atrial fibrillation: -Continue amiodarone, on aspirin -Not on anticoagulation due to GI bleeds Status: Acute Code(s): I48.91 - Unspecified atrial fibrillation (6) Hypertension: Status: Acute Code(s): I10 - Essential (primary) hypertension (7) Hyperlipidemia: Status: Acute Code(s): E78.5 - Hyperlipidemia, unspecified (8) Peripheral arterial disease: On Plavix Status: Acute Code(s): I73.9 - Peripheral vascular disease, unspecified (9) Bilateral carotid artery stenosis: Status: Acute Code(s): I65.23 - Occlusion and stenosis of bilateral carotid arteries (10) Bladder cancer: -Recently diagnosed with bladder cancer by Dr. 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: -Status post radiation therapy Status: Acute Code(s): C34.91 - Malignant neoplasm of unspecified part of right bronchus or lung (12) Hypothyroidism: Status: Acute Code(s): E03.9 - Hypothyroidism, unspecified (13) Anemia: -Patient's hemoglobin has steadily been declining, last hemoglobin 10.2, denies bloody stools, denies black stools -Has a history of gross hematuria secondary to bladder cancer, denies current hematuria -Continue aspirin and Plavix due to concerns for worsening ejection fraction, place patient on Protonix Plan: -Has component of iron deficiency anemia -Hemoglobin 11.3 Status: Acute Code(s): D64.9 - Anemia, unspecified Attestations Medical Necessity Statement*: Patient requires continued hospitalization for acute respiratory failure Coding Level of Care Code Acute 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
--- NOTE | 2019-08-09 14:30 | PC.CHAP ---
Pastoral Care Encounter/Spiritual Assessment Type of Contact [] Declined ict help desk technician visit [] Patient/Family/Request visit [] Outpatient visit [] Follow-up visit [] Physician referral [] Code/Alert [] Routine visit [] Staff referral [] Actively dying [x] Patient sleeping [] Family support [] [] Out of room [] Palliative care [] [] Receiving care in room [] Pre-surgical visit [] Trauma [] Long length of stay [] ICU visit [] Other: Relational/Emotional Strength [] Patient feels connected with others/family/visitors/staff [] Distress [] Loneliness/isolation [] Abandonment Spirituality of Patient [] Person of Kimmie [] Attends Restorationism of their Kimmie [] Believes in Prayer [] Reads Bible or Evangelical materials [] There are Spiritual issues to be addressed Pellet Mill Operator Interventions [] Prayer [] Active listening [] Non-anxious presence [] Spiritual/emotional support [] Crisis/trauma care [] Spiritual counseling [] Bereavement support [] Provided bereavement packet [] Provided Bible/devotional materials [] Provided toy/stuffed animal, coloring book to patient or family member [] Completed spiritual assessment [] Provided Communion [] Anointing/[place] [] Salvation [] Other: Impact on Illness or Injury [] Angry [] Fearful [] Anxious [] Often cries [] Exhaustion [] Unable to work [] Unable to attend methodist [] Unable to walk/stand [] Unable to read [] Unable to drive [] Unable to eat/drink [] Unable to sleep [] Unable to be with family [] Other: Summary patient was sleeping, Pellet Mill Operator will revisit. Time spent with patient 2min
[2019-08-09] MEDS: pantoprazole DR 40 mg Tablet PO (17:26)
--- NOTE | 2019-08-09 20:03 | PC.RESP ---
BIPAP ON STAND BY. PT STATED THAT HE DIDN'T THINK HE WANTED TO WEAR IT TONIGHT
[2019-08-09] MEDS: enoxaparin 40 mg/0.4 mL Syringe SUBCUT (21:34)
[2019-08-10] VITALS (18 sets, daily range): BP systolic 116–136; BP diastolic 66–77; PULSE 56–97; RESP 18–24; TEMP 36.3–37.2; O2SAT 88–98
[2019-08-10] MEDS: cetacaine Spray 5 gm Can 1 SPRAY TOPICAL (00:27)
[2019-08-10] MEDS: oxymetazoline 0.05% Nasal Spray 15 mL 2 SPRAY NOSTRIL-R (00:29)
[2019-08-10] MEDS: oxyCODONE-APAP 5-325 mg Tablet 1 TAB PO ×3 (01:26→21:03)
[2019-08-10] MEDS: ipratropium-albuterol 3 mL Neb INHALATION ×5 (02:44→19:39)
[2019-08-10] MEDS: FUROsemide 10 mg/mL SDV 4mL 40 MG IVP ×3 (04:20→20:51)
[2019-08-10 06:22] LABS: Basophils % 0.1 %; Eosinophils % 0.1 %; Hemoglobin 12.3 g/dL (11.7-16.6); Lymphocytes # 2.2 10^3/uL (0.8-4.8); Lymphocytes % 11.5 %; Mean Corpuscular HGB Conc 31.5 g/dL (30.0-36.0); Mean Corpuscular Hemoglobin 28.1 pg (28.0-34.0); Mean Corpuscular Volume 89.2 fL (80-94); Mean Platelet Volume 10.2 fL (7.4-10.4); Monocytes # 1.8 10^3/uL (0.2-0.9); Monocytes % 9.6 %; Neutrophils # 14.6 10^3/uL (1.8-7.7); Neutrophils % 77.8 %; Nucleated Red Blood Cells % 0 %; Platelet Count 323 10^3/cmm (130-400); Red Blood Count 4.37 10^6/uL (4.1-5.3); White Blood Count 18.8 10^3/uL (4.0-10.0)
[2019-08-10 06:37] LABS: Alanine Aminotransferase 20 U/L (0-41); Albumin Level 4.3 g/dL (3.5-5.2); Alkaline Phosphatase 100 IU/L (40-130); Aspartate Amino Transferase 22 U/L (0-40); Blood Urea Nitrogen 47 mg/dL (8-23); Calcium 10.6 mg/Dl (8.8-10.2); Carbon Dioxide 30 mmol/L (22-29); Chloride 91 mmol/L (98-107); Globulin 2.5 g/dL (1.3-4.6); Glucose 155 mg/dL (74-106); Magnesium 2.5 mg/dL (1.7-2.3); Sodium 138 mmol/L (136-145); Total Bilirubin 0.9 mg/dL (0.15-1.2); Total Protein 6.8 g/dL (6.6-8.7)
--- NOTE | 2019-08-10 07:00 | XR_ITS ---
WS: [id number] CHEST XRAY TECHNIQUE: Portable chest. CLINICAL INFORMATION: sob COMPARISON: FINDINGS: Heart: Cardiomegaly. Sternotomy. Cardiac pacer. Lungs: Chronic emphysematous changes. Improved bilateral interstitial infiltrates or edema. Surgical clips thoracic inlet. Bones: Normal visualized bony structures. XR/XR chest 1V portable [id number] IMPRESSION: Chronic emphysematous changes. Improved bilateral interstitial infiltrates or e natty. No focal pneumonia.
[2019-08-10] MEDS: budesonide 0.5 mg/2 mL Neb INHALATION ×2 (08:00→19:39)
--- NOTE | 2019-08-10 08:10 | PC.RESP ---
pt rinsed and spit
[2019-08-10] MEDS: atorvastatin 40 mg Tablet 20 MG PO (08:36)
[2019-08-10] MEDS: amiodarone 200 mg Tablet 100 MG PO (08:36)
[2019-08-10] MEDS: doxycycline 100 mg Tablet PO ×2 (08:37→17:55)
[2019-08-10] MEDS: pantoprazole DR 40 mg Tablet PO ×2 (08:37→17:55)
[2019-08-10] MEDS: predniSONE 20 mg Tablet 40 MG PO (08:37)
[2019-08-10] MEDS: levothyroxine 112 mcg Tablet PO (08:37)
[2019-08-10] MEDS: citalopram 20 mg Tablet 10 MG PO (08:37)
[2019-08-10] MEDS: aspirin 81 mg EC Tablet PO (08:37)
[2019-08-10] MEDS: ferrous sulfate EC 325 mg Tablet PO ×2 (08:37→17:55)
[2019-08-10] MEDS: clopidogrel 75 mg Tablet PO (08:37)
[2019-08-10] MEDS: phenazopyridine 100 mg Tablet PO ×2 (08:38→21:03)
[2019-08-10] MEDS: docusate sodium 100 mg Capsule PO ×2 (08:38→17:55)
--- NOTE | 2019-08-10 12:35 | DCPLANNER ---
*IMM* Patient received Important message from Medicare. Patient was givemn a copy after they signed the original. original is placed in the chart.
--- NOTE | 2019-08-10 16:59 | PM.PN ---
Subjective Subjective: Interval history: Atif had a nosebleed last night. He otherwise feels like he is doing a little bit better. Still short of breath. Medications: Reviewed: Yes Vitals/I&O/Wt Last Vital Signs Temp 98.3 F 08/10/19 16:00 Pulse 88 08/10/19 16:00 Resp 18 08/10/19 16:00 BP 136/77 08/10/19 16:00 Pulse Ox 92 08/10/19 16:00 08/10/19 08/10/19 08/10/19 06:59 14:59 22:59 Intake Total 240 / 240 Output Total 850 / 3090 Balance - / 240 / 240 Weight last 48 hrs Weight 62.596 kg Weight 62.46 kg Physical Exam Narrative: EXAM NARRATIVE: General exam is a weak appearing white male in mild respiratory distress Cardiovascular irregular, irregular Lungs diminished breath sounds bilaterally. A few bibasilar crackles Abdomen is soft with positive bowel sounds Extremities with 1+ edema bilaterally Data Micro: Micro: Microbiology 08/07/19 13:00 Urine Culture - Pr eliminary Urine,Clean Catch Gram Negative R ods A&P Assessment and plan (1) Acute respiratory failure: Secondary to acute systolic congestive heart failure, COPD exacerbation. Currently on diuretics, prednisone, doxycycline, nebulized treatments Status: Acute Code(s): J96.00 - Acute respiratory failure, unspecified whether with hypoxia or hypercapnia (2) COPD (chronic obstructive pulmonary disease): See above. Acute COPD exacerbation. Improving Status: Acute Code(s): J44.9 - Chronic obstructive pulmonary disease, unspecified (3) Systolic CHF with reduced left ventricular function, NYHA class 3: Last echocardiogram demonstrated diminished EF at 25%. Patient reports he wants medical treatment only and is not interested in further invasive evaluation or stress testing. Continuing IV Lasix. Repeat BMP tomorrow Status: Acute Code(s): I50.20 - Unspecified systolic (congestive) heart failure (4) Dilated cardiomyopathy: See above Status: Acute Code(s): I42.0 - Dilated cardiomyopathy (5) Atrial fibrillation: Continue amiodarone. 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 Concerned he may not be able to endure procedure secondary to heart failure Status: Acute Code(s): C67.9 - Malignant neoplasm of bladder, unspecified (14) Epistaxis: Repeat CBC tomorrow Status: Acute Code(s): R04.0 - Epistaxis Attestations Medical Necessity Statement*: Needs continued hospital stay for further medicine adjustment, and close monitoring following nosebleed. 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
[2019-08-11] VITALS (11 sets, daily range): BP systolic 104–113; BP diastolic 64–70; PULSE 56–96; RESP 15–20; TEMP 36.1–36.6; O2SAT 83–98
[2019-08-11 04:11] LABS: Anion Gap 21.1 (5-19); Blood Urea Nitrogen 54 mg/dL (8-23); Calcium 10.5 mg/Dl (8.8-10.2); Carbon Dioxide 31 mmol/L (22-29); Chloride 90 mmol/L (98-107); Glucose 138 mg/dL (74-106); Potassium 4.1 mmol/L (3.5-5.1); Sodium 138 mmol/L (136-145)
[2019-08-11 04:22] LABS: Basophils % 0.1 %; Eosinophils % 0.1 %; Hematocrit 38.2 % (42.0-52.0); Hemoglobin 12.1 g/dL (11.7-16.6); Lymphocytes % 11.9 %; Mean Corpuscular HGB Conc 31.7 g/dL (30.0-36.0); Mean Corpuscular Hemoglobin 28.1 pg (28.0-34.0); Mean Corpuscular Volume 88.8 fL (80-94); Mean Platelet Volume 10.4 fL (7.4-10.4); Monocytes # 1.7 10^3/uL (0.2-0.9); Monocytes % 10.3 %; Neutrophils # 12.6 10^3/uL (1.8-7.7); Neutrophils % 76.9 %; Nucleated Red Blood Cells % 0 %; Platelet Count 298 10^3/cmm (130-400); Red Cell Distribution Width 25.6 % (12.1-15.1); White Blood Count 16.4 10^3/uL (4.0-10.0)
[2019-08-11] MEDS: ipratropium-albuterol 3 mL Neb INHALATION ×2 (04:34→07:25)
[2019-08-11] MEDS: FUROsemide 10 mg/mL SDV 4mL 40 MG IVP (04:58)
[2019-08-11] MEDS: levoFLOXacin 750 mg Tablet PO (05:00)
[2019-08-11] MEDS: budesonide 0.5 mg/2 mL Neb INHALATION (07:25)
[2019-08-11] MEDS: oxyCODONE-APAP 5-325 mg Tablet 1 TAB PO (08:38)
[2019-08-11] MEDS: clopidogrel 75 mg Tablet PO (08:38)
[2019-08-11] MEDS: atorvastatin 40 mg Tablet 20 MG PO (08:38)
[2019-08-11] MEDS: citalopram 20 mg Tablet 10 MG PO (08:38)
[2019-08-11] MEDS: predniSONE 20 mg Tablet 40 MG PO (08:39)
[2019-08-11] MEDS: ferrous sulfate EC 325 mg Tablet PO (08:39)
[2019-08-11] MEDS: docusate sodium 100 mg Capsule PO (08:39)
[2019-08-11] MEDS: levothyroxine 112 mcg Tablet PO (08:39)
[2019-08-11] MEDS: pantoprazole DR 40 mg Tablet PO (08:39)
[2019-08-11] MEDS: amiodarone 200 mg Tablet 100 MG PO (08:39)
[2019-08-11] MEDS: doxycycline 100 mg Tablet PO (08:40)
--- NOTE | 2019-08-11 12:28 | P.DS_ITS ---
Discharge Providers Date of Admission: 08/07/19 13:46 Date of Discharge: 08/11/19 Attending Provider at Admission: Ajit Handley MD Attending Provider at Discharge: Serjio Cook MD Primary Care Provider: Evaristo Vanegas Diagnoses at Discharge Discharge Diagnosis (1) Acute respiratory failure: Status: Acute Problem details: Improved. Secondary to COPD exacerbation as well as acute diastolic heart failure (2) COPD (chronic obstructive pulmonary disease): Status: Acute Problem details: Improved. Requiring 4 L in the hospital. Home oxygen evaluation prior to discharge (3) Systolic CHF with reduced left ventricular function, NYHA class 3: Status: Acute Problem details: Much better compensated. 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 He was found to have an acute COPD exacerbation. He was also noted to have concern of pneumonia. He was placed on IV antibiotics, prednisone, pulmonary toilet. Diuresis was initiated. Echocardiogram was performed demonstrating an EF of 25%. I discussed this in detail with the patient and considering his other comorbidities, recent diagnosis of bladder cancer, he did not want further work- up. He wanted medical management alone. Unfortunately with his variable creatinine I did not think Aldactone or PATRICK inhibitor addition to his regimen would be appropriate. By the end of his hospital stay he was breathing much better, and wanting to be discharged back to skilled care. He did have an episode of epistaxis, 2 days prior to discharge. Right nares balloon device was placed, and bleeding stopped. He had no evidence of recurrence of bleeding during his hospital stay and ENT was consulted. They will follow him up in clinic in 1 week. He will continue Levaquin on discharge for complete treatment of his pneumonia. This would also be appropriate considering the nasal occlusion device he will go home with. Physical Exam Narrative: EXAM NARRATIVE: General exam is mild respiratory distress Cardiovascular irregular, irregular Lungs diminished breath sounds bilaterally but no wheezes Abdomen is soft with positive bowel sounds Extremities trace edema, to 1+ edema. Discharge Data Data Completed and Pending: Completed Studies During Hospitalization Category Date Time Status XR chest 1V richard ble [id number] Routine Exams 08/10/19 07:00 Completed XR chest 1V richadr ble [id number] Stat Exams 08/07/19 12:05 Completed CV echo complete* [id number] Urgent Ultrasound 08/08/19 19:18 [place] [id number] Urgent Ultrasound 08/07/19 12:03 Completed Pending at discharge Category Date Time Status Blood Culture Sta t Lab 08/07/19 13:08 Results Urine Culture Sta t Lab 08/07/19 13:00 Results Labs from last 24 hours 08/11/19 08/11/19 03:35 03:35 WBC 16.4 H RBC 4.30 Hgb 12.1 Hct 38.2 L MCV 88.8 MCH 28.1 MCHC 31.7 RDW 25.6 H Plt Count 298 MPV 10.4 Neut % (Auto) 76.9 Lymph % (Auto) 11.9 [place] % (Auto) 10.3 Eos % (Auto) 0.1 Baso % (Auto) 0.1 Neut # (Auto) 12.6 H Lymph # (Auto) 2.0 [place] # (Auto) 1.7 H Eos # (Auto) 0.0 Baso # (Auto) 0.0 Nucleated RBC % (a uto) 0 Nucleated RBCs # 0.0 Sodium 138 Potassium 4.1 Chloride 90 L Carbon Dioxide 31 H Anion Gap 21.1 H BUN 54 H Creatinine 2.1 H Glucose 138 H Calcium 10.5 H Vitals: Last Vital Signs Temp 96.9 F L 08/11/19 12:00 Pulse 96 08/11/19 12:00 Resp 15 08/11/19 12:00 BP 109/66 08/11/19 12:00 Pulse Ox 96 08/11/19 12:00 Discharge Plan Discharge Patient Disposition: Xfer Intermediate Care Fac Condition: Stable Prescriptions: New doxycycline monohydrate 100 mg Tablet 100 mg PO BID Qty: 14 RF: 0 levofloxacin 750 mg Tablet 750 mg PO DAILY@0600 Qty: 7 RF: 0 prednisone 20 mg Tablet 40 mg PO DAILY Qty: 5 RF: 0 furosemide 40 mg Tablet 40 mg PO BID@08,16 Qty: 60 RF: 0 Continued citalopram 10 mg tablet 10 mg PO ONCE RF: 0 docusate sodium 100 mg capsule 100 mg PO BID RF: 0 esomeprazole magnesium 40 mg capsule,delayed release(DR/EC) 40 mg PO DAILY RF: 0 potassium chloride [Klor-Con 10] 10 mEq tablet extended release 20 meq PO BID RF: 0 levothyroxine 112 mcg capsule 112 mcg PO DAILY RF: 0 loratadine [Allergy Relief (loratadine)] 10 mg tablet 5 mg PO DAILY RF: 0 nitroglycerin [Nitrostat] 0.4 mg tablet, sublingual 0.4 mg SUBLINGUAL Q5M PRN (Reason: Chest Pain) RF: 0 oxycodone-acetaminophen [Percocet] 5-325 mg tablet 1 tab PO Q4H PRN (Reason: Pain) RF: 0 rosuvastatin 5 mg tablet 5 mg PO BEDTIME RF: 0 albuterol sulfate 2.5 mg /3 mL (0.083 %) Solution For Nebulization 2.5 mg INHALATION Q4H PRN (Reason: Shortness Of Breath) RF: 0 ondansetron HCl 8 mg Tablet 8 mg PO Q8H PRN (Reason: Nausea) RF: 0 phenazopyridine 200 mg Tablet 200 mg PO Q4H PRN (Reason: prn) RF: 0 Plavix 75 mg Tablet 75 mg PO DAILY RF: 0 acetaminophen 500 mg Tablet 500 mg PO Q4H PRN (Reason: Pain) RF: 0 Cough Syrup 100 mg/5 mL Liquid 200 mg PO Q4H PRN (Reason: Cough) RF: 0 MagOx 400 mg (241.3 mg magnesium) Tablet 400 mg PO DAILY RF: 0 Milk of Magnesia 400 mg/5 mL Suspension 30 ml PO DAILY PRN (Reason: Constipation) RF: 0 Wixela Inhub 500-50 mcg/dose Blister With Device 1 inh INHALATION BID RF: 0 Calcium 500 500 mg calcium (1,250 mg) Tablet,Chewable 500 mg PO DAILY PRN (Reason: Indigestion) RF: 0 Sherice-Lanta 200-200-20 mg/5 mL Suspension 10 - 20 ml PO QID PRN (Reason: Indigestion) RF: 0 albuterol sulfate 90 mcg/actuation Hfa Aerosol Inhaler 2 puff INHALATION 6XD PRN (Reason: Shortness Of Breath) RF: 0 CertaVite Senior-Antioxidant 0.4-300-250 mg-mcg-mcg Tablet 1 tab PO DAILY RF: 0 Spiriva Respimat 2.5 mcg/actuation Mist 2 puff INHALATION DAILY RF: 0 Changed amiodarone 100 mg tablet 100 mg PO DAILY Qty: 0 RF: 0 Discontinued aspirin [Adult Low Dose Aspirin] 81 mg tablet,delayed release (DR/EC) 81 mg PO ONCE RF: 0 furosemide 40 mg tablet 40 mg PO BID PRN (Reason: Edema) RF: 0 Discharge Orders: Discharge Order (Routine); Ordered 08/11/19 Ordered By: Serjio Cook Referrals: Edil Vanegas MD [Primary Care Provider] - 1-3 days Tha Hurley M.D [Physician] - 1 week Discharge Diet: Cardiac Discharge Activity: Resume usual activity Activity Restrictions/Additional Instructions: Oxygen 4 L per nasal cannula. Home oxygen evaluation prior to discharge. Take all medicine as prescribed. BMP in 3 days. Follow-up with primary care provider 3 to 4 days. Follow-up with ENT 1 week. 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
--- NOTE | 2019-08-12 08:43 | PC.NURSE ---
Per [facility] prescriptions were not received by [facility] [phone]. New medications phoned to Alfredo at [facility].
--- NOTE | 2019-08-12 14:14 | PM.CONSULT ---
Providers/Reason For Consult Consulting Physican/Specialty*: ear nose and throat Reason for Consult*: epistaxis Attending Physician: Serjio Cook MD Primary Care Provider: Edil Vanegas MD History of Present Illness History of Present Illness Atif Claire is a 84 year old anticoagulated male who developed right sided nosebleeds 24 hours prior to visit. He was packed in the bedside by the emergency physician with a blue stent. Has not had any further bleeding. Review of Systems General: Reports: 10 or more systems reviewed and unremarkable except in HPI and below Meds/Allergies Home Medications and Allergies Home Medications Medication Instructions Recorded Confirmed Type amiodarone 100 mg tablet 100 mg PO ONCE 07/28/19 08/07/19 History aspirin 81 mg tablet,delayed 81 mg PO ONCE 07/28/19 08/07/19 History release citalopram 10 mg tablet 10 mg PO ONCE 07/28/19 08/07/19 History docusate sodium 100 mg capsule 100 mg PO BID 07/28/19 08/07/19 History esomeprazole magnesium 40 mg 40 mg PO DAILY 07/28/19 08/07/19 History capsule,delayed release furosemide 40 mg tablet 40 mg PO BID PRN 07/28/19 08/07/19 History levothyroxine 112 mcg capsule 112 mcg PO DAILY 07/28/19 08/07/19 History loratadine 10 mg tablet 5 mg PO DAILY 07/28/19 08/07/19 History nitroglycerin 0.4 mg sublingual 0.4 mg SUBLINGUAL Q5M PRN 07/28/19 08/07/19 History tablet oxycodone-acetaminophen 5 mg-325 1 tab PO Q4H PRN 07/28/19 08/07/19 History mg tablet potassium chloride 10 mEq 20 meq PO BID tab 07/28/19 08/07/19 History tablet,extended release rosuvastatin 5 mg tablet 5 mg PO BEDTIME 07/28/19 08/07/19 History acetaminophen 500 mg PO Q4H PRN 08/07/19 08/07/19 History albuterol sulfate 2 puff INHALATION 6XD PRN 08/07/19 08/07/19 History albuterol sulfate 2.5 mg INHALATION Q4H PRN 08/07/19 08/07/19 History alum-mag hydroxide-simeth 10 - 20 ml PO QID PRN 08/07/19 08/07/19 History [Sherice-Lanta] calcium carbonate [Calcium 500] 500 mg PO DAILY PRN 08/07/19 08/07/19 History clopidogrel [Plavix] 75 mg PO DAILY 08/07/19 08/07/19 History fluticasone propion-salmeterol 1 inh INHALATION BID 08/07/19 08/07/19 History [Wixela Inhub] guaifenesin [Cough Syrup] 200 mg PO Q4H PRN 08/07/19 08/07/19 History magnesium hydroxide [Milk of 30 ml PO DAILY PRN 08/07/19 08/07/19 History Magnesia] magnesium oxide [MagOx] 400 mg PO DAILY 08/07/19 08/07/19 History twntevvm-hsx-ZF-lycopen-lutein 1 tab PO DAILY 08/07/19 08/07/19 History [CertaVite Senior-Antioxidant] ondansetron HCl 8 mg PO Q8H PRN 08/07/19 08/07/19 History phenazopyridine 200 mg PO Q4H PRN 08/07/19 08/07/19 History tiotropium bromide [Spiriva 2 puff INHALATION DAILY 08/07/19 08/07/19 History Respimat] Allergies Allergy/AdvReac Type Severity Reaction Status Date / Time amoxicillin Allergy Unknown Unknown Verified 08/07/19 14:18 Penicillins Allergy Unknown Unknown Verified 08/07/19 14:18 Sulfa (Sulfonamide Allergy Unknown Unknown Verified 08/07/19 14:18 Antibiotics) PFSH Acute PFSH: Statuses (acute, chronic, etc) shown below reflect problem list status as previously entered and may not be historically accurate Medical History Hernia, inguinal, bilateral (Acute) Pacemaker (Acute) Pulmonary HTN (Acute) Surgical History H/O rotator cuff surgery (Acute) History of angioplasty of peripheral vessel (Acute) History of carpal tunnel surgery (Acute) Hx of endarterectomy (Acute) S/P CABG x 4 (Acute) Family History Brother Cancer Diabetes CAD (coronary artery disease) Myocardial infarct Father Parkinson disease Social History Smoking and tobacco status: former smoker Alcohol intake: unknown Marital status: Single Vitals/I&O/Wt Last Vital Signs Temp 96.9 F L 08/11/19 15:13 Pulse 96 08/11/19 12:00 Resp 15 08/11/19 15:13 BP 109/66 08/11/19 12:00 Pulse Ox 96 08/11/19 15:13 Weight last 48 hrs Weight 141 lb 14.4 oz Physical Exam Const: COMMON NORMALS: no apparent distress and average body habitus GENERAL APPEARANCE: cooperative and comfortable HENMT: COMMON NORMALS: normocephalic, external ears normal, EAC's normal and external nose normal HEAD & SCALP: normal to inspection and normocephalic FACE & SINUS: normal facial exam and face symmetric NOSE: external nose normal, septum abnormal and foreign body in naris (balloon packing right, no bleeding) Foreign body in naris laterality: right EXTERNAL EAR: Yes external ears normal, Yes mastoids normal and Yes no preauricular adenopathy EXTERNAL AUDITORY CANAL: EAC's normal MOUTH: oral and palatal mucosa normal, lip normal, tongue normal and salivary glands and ducts normal THROAT: posterior oropharynx normal (no bleeding) Neck/C-Spine: COMMON NORMALS: no lymphadenopathy Data Micro: Micro: Microbiology 08/07/19 13:08 Blood Culture - Fi nal Blood NO GROWTH AFTER 5 DAYS 08/07/19 12:18 Blood Culture - Fi nal Blood NO GROWTH AFTER 5 DAYS 08/07/19 13:00 Urine Culture - Fi nal Urine,Clean Catch Pseudomonas aer uginosa A&P Assessment and plan (1) Epistaxis: The patient's packing is in place and he has had no bleeding. Options were reviewed. I would prefer leave the packing in and the mucosal loud to rest to allow better chance of not having to re-pack his naris. the other option would be to take him to surgery and remove it under a controlled environment however due to the patient's medical comorbidities this would not be ideal. I discussed this with patient and he is agreeable to return to the office next Saturday for packing removal. Also discussed the possibility that there will be rebleeding in which case we will have to address this. Status: Acute Code(s): R04.0 - Epistaxis Coding Level of Care Code Acute Treating Plant Supervisor for [facility] Fwd Diagnoses Epistaxis R04.0
== END 2019-08-11 15:13 | disposition home or self-care (01) | DRG 291 ==
LOC: ER 13:41 → MEDSURG 17:17
PROVIDERS: Admitting Provider Family Medicine; Emergency Provider Emergency Medicine; Family Provider Internal Medicine; PCP Internal Medicine; Visit Provider Internal Medicine
DX: I11.0 Hypertensive heart disease with heart failure (principal); J96.00 Acute respiratory failure, unspecified whether with hypoxia or hypercapnia; J44.1 Chronic obstructive pulmonary disease with (acute) exacerbation; I50.23 Acute on chronic systolic (congestive) heart failure; I42.0 Dilated cardiomyopathy; I27.20 Pulmonary hypertension, unspecified; I48.91 Unspecified atrial fibrillation; Z99.81 Dependence on supplemental oxygen; I73.9 Peripheral vascular disease, unspecified; D50.9 Iron deficiency anemia, unspecified; E78.5 Hyperlipidemia, unspecified; E03.9 Hypothyroidism, unspecified; C67.9 Malignant neoplasm of bladder, unspecified; Z85.118 Personal history of other malignant neoplasm of bronchus and lung
CPT/HCPCS: 12345; 36415; 36600; 71045; 80048; 80053; 81001; 82274; 82728; 82803; 83540; 83550; 83605; 83735; 83880; 84100; 84484; 85025; 85045; 85730; 87040; 87077; 87086; 87186; 87804; 93005; 93306; 93970; 94640; 96360; 96365; 96372; 96374; 96375; 97110; 97116; 97161; 97165; 99282; A9270; C9113; J0456; J0696; J1650; J1940; J2270; J2930; J3490; J7050; J7512; J7626

== ENCOUNTER → 2019-08-19 10:16 | Outpatient (BNVA) | payer MEDICARE, BC, SELFPAY | PROVIDERS: Family Provider Internal Medicine; PCP Internal Medicine; Referring Provider Internal Medicine; Visit Provider Otolaryngology | DX: R04.0 Epistaxis (principal); J34.2 Deviated nasal septum | CPT/HCPCS: 99213; 99214 ==

== ENCOUNTER 2019-08-21 01:30 | Outpatient (CLI) | payer MEDICARE, BC, SELFPAY ==
--- NOTE | 2019-08-24 10:44 | ONC CON_ITS ---
Dr. Boss New Patient Note Patient: Atif Claire Unit #: [id number]: 1935 Dicatated By: Holden Boss M.D.Date of Visit: Aug 21, 2019 Onc MED New Patient/Consult Referring Physician: Dr. Evaristo Vanegas M.D. Chief Complaint: Lung cancer. 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 By clinical evaluation his disease was stage IA (T1a, N0, M0) at initial diagnosis in January 2019. On 08/30/2018 he was admitted to the hospital with shortness of breath and hypoxia. He was admitted with a presumptive diagnosis of COPD exacerbation. His V/Q lung scan at that time showed low probability for pulmonary embolus. His chest CT at that time showed a somewhat spiculated right upper lobe pulmonary nodule measuring 13 mm. The appearance was felt to be concerning for malignancy. There were scattered mildly enlarged nonspecific mediastinal lymph nodes measuring up to 12 mm. A follow-up chest CT on 12/04/2018 showed increase in the size of the right apical pulmonary nodule, concurrently measuring 13 x 15 mm. And adjacent right upper lobe satellite nodule measuring 7.2 mm appeared unchanged. There was no mediastinal or hilar lymphadenopathy noted. Tree-in-bud infiltrates within the anterior right upper lobe had shown improvement, but with residual 4 mm noncalcified nodule. There were moderate chronic emphysematous changes. I had seen him initially on 12/24/2018. He had further evaluation with PET/CT on 01/17/2019. It confirmed the presence of an FDG avid spiculated right upper lobe pulmonary nodule measuring 1.2 cm, SUV 6.2, indicating a high probability of malignancy. A mildly active subaortic lymph node was felt to be most likely reactive. There was no other evidence for metastatic disease. He then underwent CT directed needle biopsy of the right upper lobe mass at [facility] on 02/13/2019. Pathology was consistent with moderately differentiated squamous cell carcinoma. The tumor was noted to be positive for PD-L1 expression at 5%. With those findings he was treated with SBRT to the lung lesion. He completed treatment on 03/11/2019 to a total dose of 4800 cGy. He tolerated it well. A repeat chest CT on 04/22/2019 showed residual right upper lobe spiculated nodule measuring 11 x 12 mm, similar to the prior CT and PET/CT studies. Mediastinal and hilar lymph nodes appeared stable in size with no evidence of disease progression. There was noted to be severe chronic emphysema. His other medical illnesses include atrial fibrillation, carotid stenosis, chronic kidney disease, chronic obstructive pulmonary disease, congestive heart failure, coronary artery disease, degenerative arthritis, depression, gastroesophageal reflux disease, hyperlipidemia, hypothyroidism, onychomycosis, peripheral artery disease, pulmonary hypertension, Raynauds, restless leg syndrome, sick sinus syndrome, and vitamin D deficiency. He also has a history of iron deficiency anemia. He is seen for a follow-up visit at [facility]. He has not been feeling good. He complains that he is weak and that he has no energy. He has virtually no activity now. His ECOG score is 3. His appetite has been poor. He complains that he cannot eat. He also has lost his voice. He has no fever or night sweats. His breathing is about the same. He has shortness of breath and he uses oxygen as needed. He has nonproductive cough. He has no chest pain or hemoptysis. He has no GI complaints. He has some hesitancy with urination and some discomfort when he voids. He has seen Dr. Youssef for hematuria. He currently has no significant joint pain. He has had numbness in his feet since his heart surgery in 2013. Past Medical History: His medical history includes atrial fibrillation, carotid stenosis, chronic kidney disease, chronic obstructive pulmonary disease, congestive heart failure, coronary artery disease, degenerative arthritis, depression, gastroesophageal reflux disease, history of iron deficiency anemia, hyperlipidemia, hypothyroidism, onychomycosis, peripheral artery disease, pulmonary hypertension, Raynauds, restless leg syndrome, sick sinus syndrome, and vitamin D deficiency. Past Surgical History: His surgical/procedural history includes bilateral carotid endarterectomy, carpal tunnel release, coronary artery bypass - x4 in 2013, inguinal hernia repair bilaterally, angioplasty/stenting of right superficial femoral artery and left external iliac artery in 2017, placement of permanent pacemaker in 2015, quadruple coronary artery bypass in 2013, and colonoscopy in 2008. Medications: Acetaminophen 1 - 2 Tablet (of 500 mg) Oral q 4 to 6 hours PRN, Advair Diskus 1 puff(s) (of 500-50 mcg/dose) Aerosol Powder, Breath Activated Inhalation b.i.d., Albuterol Sulfate 1 ((2.5 mg/3ml) 0.083%) Nebulization solution Inhalation q 4 hours, Amiodarone HCl 1 Tablet (of 100 mg) Oral daily, Antacid 10 - 20 mL (of 200-200-20 mg/5mL) Suspension Oral four times a day PRN, Aspirin 1 Tablet (of 81 mg) Oral daily, Calcium 1 Tablet (of 500 mg) Tablet, chewable Oral PRN, CertaVite Senior/Antioxidant 1 Tablet Oral daily, Citalopram Hydrobromide 1 Tablet (of 10 mg) Oral daily, Clopidogrel Bisulfate 1 Tablet (of 75 mg) Oral daily, Cough Syrup 10 mL (of 200 mg/5mL) Syrup Oral q 4 hours PRN, [employer] Milk of Magnesia 30 mL (of 1200 mg/15mL) Suspension Oral daily PRN, DOK 1 Capsule (of 100 mg) Oral b.i.d., Ferrous Gluconate 1 Tablet (of 324 (37.5 fe) mg) Oral daily, Furosemide 1 Tablet (of 40 mg) Oral b.i.d., Furosemide 1 Tablet (of 20 mg) Oral daily PRN, Levothyroxine Sodium 1 Tablet (of 112 mcg) Oral daily, Loratadine 0.5 Tablet (of 10 mg) Oral daily, Magnesium Oxide 1 Tablet (of 400 mg) Oral b.i.d., Meclizine HCl 1 Tablet (of 25 mg) Oral b.i.d., Nitroglycerin 1 Tablet (of 0.4 mg) Tablet, sublingual Sublingual PRN, Ondansetron HCl 1 Tablet (of 8 mg) Oral t.i.d. PRN, oxyCODONE-Acetaminophen 1 Tablet (of 5-325 mg) Oral q 4 hours PRN, Phenazopyridine HCl 1 Tablet (of 200 mg) Oral q 4 hours PRN, Potassium Chloride ER 2 Tablet (of 10 meq) Tablet, controlled release Oral b.i.d., ProAir HFA 2 puff(s) (of 108 (90 base) mcg/act) Aerosol, solution Inhalation q 4 hours PRN, Rosuvastatin Calcium 1 Tablet (of 5 mg) Oral at bedtime, Spiriva Respimat 2 Puff(s) (of 2.5 mcg/act) Aerosol, solution Inhalation at bedtime Allergies: Ampicillin, Penicillins, and Sulfa Antibiotics. Social History: Mr. Claire is and he is retired. He has history of smoking for up to 2 packs of cigarettes daily for 14 years. At age 31 he had quit smoking for 10 years, but then smoked on and off until approximately 2008, when he quit for good. He currently does not drink alcohol. He has had some alcohol use in the past, but not heavy. Family History: His father may have had muscular dystrophy. His mother of heart disease. A brother with myeloma. A sister also had heart disease. His son of prostate cancer at age 52. Review Of Symptoms: Constitutional - He is weak and he has very little acitvity. Appetite is poor. He is losing weight. No fever or night sweats. ECOG score is 3, ENMT - No sinus congestion/drainage. No mouth sores. No sore throat or difficulty swallowing, but he is having hoarseness, Hematologic/Lymphatic - He bruises easily, Respiratory - He has shortness of breath with activity. He uses oxygen as needed. He has a nonproductive cough. No pleuritic pain or hemoptysis, Cardiovascular - No angina pain. No palpitations, Gastrointestinal - No nausea or vomiting. No heartburn or acid reflux. No diarrhea or constipation. No blood in the stool or black stools, Genitourinary (M) - He has urinary frequency and he has some hesitancy. He also has some discomfort with urination. No hematuria. No urgency or incontinence, Musculoskeletal - No joint or bone pain, Integumentary - No skin complications, Neurologic - No headache or dizziness. 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 No insomnia. Vital Signs: Performed on Aug 23, 2019 10:13: 16.02 (LOW), 1.78 sq.m, 74.00 in, 92/54 mm(hg), 124.8 lbs (LOW), Performed on Apr 23, 2019 13:25: F, , , , and Performed on Mar 09, 2019 14:22: %. Physical Examination: Constitutional - He appears generally weak and somewhat frail, Eyes - Sclerae nonicteric. Conjunctivae clear, ENMT - No lesions noted in the oral cavity, Hematologic/Lymphatic - No cervical, clavicular, or axillary adenopathy, Respiratory - Lungs show diminished air movement bilaterally. There are mild expiratory rhonichi, Cardiovascular - Heart rhythm appears regular. There is no murmur, gallop, or rub noted, Abdomen - Soft and non-tender. Liver and spleen are not enlarged. There is no abdominal mass or ascites noted and there is no inguinal adenopathy, Extremities - There are venous stasis changes bilaterally. There is mild lower extremity edema, Integumentary - No rashes. No suspicious skin lesions noted, Neurologic - There are no focal neurologic deficits noted. Impression: 1. 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 By clinical evaluation his disease was stage IA (T1a, N0, M0) at initial diagnosis in January 2019. The tumor was noted to be positive for PD-L1 expression at 5%. 2. He was deemed to be medically inoperable due to mutliple underlying medical illnesses/comorbidities. He was treated with SBRT to the lung lesion. He completed treatment on 03/11/2019 to a total dose of [address] on 04/22/2019 showed stable right upper lobe nodule with no evidence of disease progression. His other medical illnesses include: 3. Hypertension. 4. Hyperlipidemia. 5. Coronary artery disease with previous coronary artery bypass. 6. Atrial fibrillation. 7. Congestive heart failure. 8. He underwent placement of permanent pacemaker for sick sinus syndrome. 9. Carotid artery disease with previous bilateral carotid endarterectomy. 10. Peripheral arterial disease with arterial stent procedures to both legs. 11. Chronic kidney disease. 12. COPD. 13. Hypothyroidism. 14. GERD. 15. History of iron deficiency anemia. 16. Degenerative arthritis. 17. History of depression. He is seen now due to a fairly rapid decline in his general condition including weakness/fatigue, anorexia, and weight loss. He has developed hoarseness. In the setting of a known lung cancer and declining performance status, this is highly suspicious for progression of the lung cancer. Plan: He will be scheduled for laboratory studies to include CBC, comprehensive metabolic profile, serum iron studies, B12 level, and a TSH level. He also will be scheduled for a restaging PET/CT. He will have further evaluation as indicated. However, if he is confirmed to have progression of the lung cancer, in the setting of poor performance status his treatment options will be limited. Signed By: Holden Boss M.D. <<Signature on File>>
== END 2019-08-21 01:31 | disposition home or self-care (01) ==
LOC: ONCMED 08-24 07:11
PROVIDERS: Family Provider Internal Medicine; PCP Internal Medicine; Visit Provider Internal Medicine Medical Oncology
DX: Z76.89 Persons encountering health services in other specified circumstances (principal)

== ENCOUNTER 2019-08-24 07:07 | Outpatient (CLI) | payer MEDICARE, BC, SELFPAY | END 2019-08-24 07:08 | disposition home or self-care (01) | LOC: ONCMED 07:07 | PROVIDERS: Family Provider Internal Medicine; PCP Internal Medicine; Visit Provider Internal Medicine Medical Oncology | DX: Z76.89 Persons encountering health services in other specified circumstances (principal) ==

== ENCOUNTER 2019-08-25 08:30 | Outpatient (CLI) | payer MEDICARE, BC, SELFPAY ==
[2019-08-25 10:17] LABS: Basophils % 0.4 %; Eosinophils # 0.2 10^3/uL (0.0-0.8); Eosinophils % 1.9 %; Hematocrit 45.4 % (42.0-52.0); Lymphocytes # 1.6 10^3/uL (0.8-4.8); Lymphocytes % 15.1 %; Mean Corpuscular HGB Conc 30.8 g/dL (30.0-36.0); Mean Corpuscular Hemoglobin 29.2 pg (28.0-34.0); Mean Corpuscular Volume 94.6 fL (80-94); Mean Platelet Volume 11.8 fL (7.4-10.4); Monocytes # 1.1 10^3/uL (0.2-0.9); Monocytes % 10.2 %; Neutrophils # 7.7 10^3/uL (1.8-7.7); Neutrophils % 71.8 %; Nucleated Red Blood Cells % 0 %; Platelet Count 131 10^3/cmm (130-400); Red Cell Distribution Width 25.6 % (12.1-15.1); White Blood Count 10.8 10^3/uL (4.0-10.0)
[2019-08-25 11:02] LABS: Alanine Aminotransferase 17 U/L (0-41); Albumin Level 4.2 g/dL (3.5-5.2); Alkaline Phosphatase 95 IU/L (40-130); Anion Gap 17.4 (5-19); Aspartate Amino Transferase 23 U/L (0-40); Blood Urea Nitrogen 35 mg/dL (8-23); Calcium 9.9 mg/dL (8.5-10.5); Carbon Dioxide 31 mmol/L (22-29); Chloride 98 mmol/L (98-107); Ferritin 121 ng/mL (30-400); Globulin 2.6 g/dL (1.3-4.6); Glucose 102 mg/dL (74-106); Iron 86 ug/dL (59-158); Percent Saturation 32.8 % (20-50); Potassium 4.4 mmol/L (3.5-5.1); Sodium 142 mmol/L (136-145); Total Bilirubin 0.9 mg/dL (0.15-1.2); Total Iron Binding Capacity 262 mg/dL; Total Protein 6.8 g/dL (6.6-8.7); Unsaturated Iron Binding 176 ug/dL (112-347); Vitamin B12 728 pg/mL (232-1245)
== END 2019-08-25 08:31 | disposition home or self-care (01) ==
LOC: ONCMED 10:08
PROVIDERS: Family Provider Internal Medicine; PCP Internal Medicine; Visit Provider Internal Medicine Medical Oncology
DX: C34.11 Malignant neoplasm of upper lobe, right bronchus or lung (principal); E03.9 Hypothyroidism, unspecified
CPT/HCPCS: 80053; 82607; 82728; 83540; 83550; 84443; 85025

== ENCOUNTER 2019-09-04 15:59 | Outpatient (CLI) | payer MEDICARE, BC, SELFPAY ==
--- NOTE | 2019-09-05 08:52 | ONC FU_ITS ---
Dr. Boss Patient Follow-Up Note Patient: Atif Claire Unit #: [id number]: 1935 Dicatated By: Holden Boss M.D.Date of Visit:Sep 04, 2019 Onc Med Follow-up/Prog Note Chief Complaint: Lung cancer. 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 By clinical evaluation his disease was stage IA (T1a, N0, M0) at initial diagnosis in January 2019. On 08/30/2018 he was admitted to the hospital with shortness of breath and hypoxia. He was admitted with a presumptive diagnosis of COPD exacerbation. His V/Q lung scan at that time showed low probability for pulmonary embolus. His chest CT at that time showed a somewhat spiculated right upper lobe pulmonary nodule measuring 13 mm. The appearance was felt to be concerning for malignancy. There were scattered mildly enlarged nonspecific mediastinal lymph nodes measuring up to 12 mm. A follow-up chest CT on 12/04/2018 showed increase in the size of the right apical pulmonary nodule, concurrently measuring 13 x 15 mm. And adjacent right upper lobe satellite nodule measuring 7.2 mm appeared unchanged. There was no mediastinal or hilar lymphadenopathy noted. Tree-in-bud infiltrates within the anterior right upper lobe had shown improvement, but with residual 4 mm noncalcified nodule. There were moderate chronic emphysematous changes. I had seen him initially on 12/24/2018. He had further evaluation with PET/CT on 01/17/2019. It confirmed the presence of an FDG avid spiculated right upper lobe pulmonary nodule measuring 1.2 cm, SUV 6.2, indicating a high probability of malignancy. A mildly active subaortic lymph node was felt to be most likely reactive. There was no other evidence for metastatic disease. He then underwent CT directed needle biopsy of the right upper lobe mass at [facility] on 02/13/2019. Pathology was consistent with moderately differentiated squamous cell carcinoma. The tumor was noted to be positive for PD-L1 expression at 5%. With those findings he was treated with SBRT to the lung lesion. He completed treatment on 03/11/2019 to a total dose of 4800 cGy. He tolerated it well. A repeat chest CT on 04/22/2019 showed residual right upper lobe spiculated nodule measuring 11 x 12 mm, similar to the prior CT and PET/CT studies. Mediastinal and hilar lymph nodes appeared stable in size with no evidence of disease progression. There was noted to be severe chronic emphysema. His other medical illnesses include atrial fibrillation, carotid stenosis, chronic kidney disease, chronic obstructive pulmonary disease, congestive heart failure, coronary artery disease, degenerative arthritis, depression, gastroesophageal reflux disease, hyperlipidemia, hypothyroidism, onychomycosis, peripheral artery disease, pulmonary hypertension, Raynauds, restless leg syndrome, sick sinus syndrome, and vitamin D deficiency. He also has a history of iron deficiency anemia. He had previously smoked up to 2 packs of cigarettes daily. He quit smoking in 2008. INTERIM HISTORY: I had seen him for a follow-up visit at [facility] on 08/21/2019. At that point he had experienced a significant decilne in performance status with progressive weakness and anorexia/weight loss. He also complained of hoarseness. The clinical findings were highly suspicious for recurrence/progression of the lung cancer. I had recommended a restaging PET/CT. That study was done on 08/29/2019. It showed significant improvement in the right upper lobe malignancy measuring 1.0 cm with SUV 2.0. Mild activity and subaortic mediastinal lymph nodes was noted to have resolved. There were no other areas of abnormal uptake or other findings to suggest metastatic disease. He is seen for a follow-up visit. He has been feeling a little better generally. He has been eating better and he has been gaining weight gradually. His energy is also a little better, and he has been a little more active. ECOG score is 2. He does not have fever or night sweats. He still has some hoarseness. He has some nonproductive cough, but not very much. He is short of breath with activity. He does not complain of chest pain. He has no GI complaints. He has some urinary frequency and nocturia. He has pain in his right shoulder at times, but no other joint or bone pain. He does not complain of headache or dizziness. He has had numbness in his feet and toes ever since his heart surgery. He does report having some depression. Medications: Acetaminophen 1 - 2 Tablet (of 500 mg) Oral q 4 to 6 hours PRN, Albuterol Sulfate 1 ((2.5 mg/3ml) 0.083%) Nebulization solution Inhalation q 4 hours, Amiodarone HCl 1 Tablet (of 100 mg) Oral daily, Antacid 10 - 20 mL (of 200-200-20 mg/5mL) Suspension Oral four times a day PRN, Calcium 1 Tablet (of 500 mg) Tablet, chewable Oral PRN, CertaVite Senior/Antioxidant 1 Tablet Oral daily, Citalopram Hydrobromide 1 Tablet (of 10 mg) Oral daily, Clopidogrel Bisulfate 1 Tablet (of 75 mg) Oral daily, Cough Syrup 10 mL (of 200 mg/5mL) Syrup Oral q 4 hours PRN, [employer] Milk of Magnesia 30 mL (of 1200 mg/15mL) Suspension Oral daily PRN, DOK 1 Capsule (of 100 mg) Oral b.i.d., Esomeprazole Magnesium 1 (40 mg) Capsule Delayed Release Oral daily, Furosemide 1 Tablet (of 20 mg) Oral daily PRN, Furosemide 1 Tablet (of 40 mg) Oral b.i.d., Levothyroxine Sodium 1 Tablet (of 112 mcg) Oral daily, Loratadine 0.5 Tablet (of 10 mg) Oral daily, Magnesium Oxide 1 Tablet (of 400 mg) Oral b.i.d., Nitroglycerin 1 Tablet (of 0.4 mg) Tablet, sublingual Sublingual PRN, Ondansetron HCl 1 Tablet (of 8 mg) Oral t.i.d. PRN, oxyCODONE-Acetaminophen 1 Tablet (of 5-325 mg) Oral q 4 hours PRN, Phenazopyridine HCl 1 Tablet (of 200 mg) Oral q 4 hours PRN, Potassium Chloride ER 2 Tablet (of 10 meq) Tablet, controlled release Oral b.i.d., ProAir HFA 2 puff(s) (of 108 (90 base) mcg/act) Aerosol, solution Inhalation q 4 hours PRN, Rosuvastatin Calcium 1 Tablet (of 5 mg) Oral at bedtime, Spiriva Respimat 2 Puff(s) (of 2.5 mcg/act) Aerosol, solution Inhalation at bedtime, Tussin 10 mL (of 100 mg/5mL) Syrup Oral q 4 hours PRN, Wixela Inhub 1 Puff(s) (of 500-50 mcg/dose) Aerosol Powder, Breath Activated Inhalation b.i.d. Allergies: Ampicillin, Penicillins, and Sulfa Antibiotics. Review of Systems: Constitutional - He is feeling better and his energy is up some. He does some light walking. His appetite is good and his weight is stable. No fever, chills, hot flashes, or night sweats. ECOG score is 2, ENMT - He has a drippy nose. He has a dry mouth. No mouth sores. He was having some difficulty swallowing, but that seems to be getting better. He has some hoarseness, Hematologic/Lymphatic - No abnormal bruising or bleeding, Respiratory - He has shortness of breath with activity. He wears continuous oxygen. He has a slight nonproductive cough. No pleuritic pain or hemoptysis, Cardiovascular - No angina pain. No palpitations, Gastrointestinal - No nausea or vomiting. No heartburn or acid reflux. No diarrhea or constipation. No blood in the stool or black stools, Genitourinary (M) - No dysuria or hematuria. He has urinary frequency, both during the day and at night. No urgency or incontinence, Musculoskeletal - He has pain in his right shoulder from a previous rotator cuff injury, Integumentary - No skin complications, Neurologic - No headache or dizziness. He has numbness in his toes and feet. He wears a glove on his right hand. It stays cold due to Raynaud's, Psychiatric - He does feel depressed at times. No insomnia. Vital Signs: Performed on Sep 04, 2019 16:35 Height - 74.00 in Weight - 138.8 lbs (HIGH) BSA - 1.86 sq.m BMI - 17.82 (LOW) Temperature - 98.4 F Pulse - 76 /min Respiration - 18 /min BP - 89/51 mm(hg) (LOW) O2 Sat - % Pain - 0 Physical Examination: Constitutional - He looks a little better, though still somewhat weak generally, Eyes - Sclerae nonicteric. Conjunctivae clear, ENMT - No lesions noted in the oral cavity, Hematologic/Lymphatic - No cervical, clavicular, or axillary adenopathy, Respiratory - Lungs sound clear with diminished air movement bilaterally, Cardiovascular - Heart rhythm is regular. There is no murmur, gallop, or rub noted, Abdomen - Soft. Liver and spleen are not enlarged. There is no abdominal mass or ascites noted and there is no inguinal adenopathy, Extremities - There are venous stasis changes bilaterally. There is mild lower extremity edema, which appears chronic, Integumentary - Skin is generally dry, Neurologic - No focal neurologic deficits noted. Lab/Imaging: His laboratory studies from 08/25/2019 included CBC showing hemoglobin 14.0 g, white blood cell count 10,800, and platelet count 131,000. Comprehensive metabolic profile showed elevated BUN and creatinine at 35 and 1.8 mg/dL. Potassium was 4.4 mmol/L. Bilirubin and liver enzymes were normal. The serum iron studies show transferrin saturation normal at 32% and the B12 level was normal at 728 pg/mL. TSH was normal at 3.90 ???IU/mL. Impression: 1. 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 By clinical evaluation his disease was stage IA (T1a, N0, M0) at initial diagnosis in January 2019. The tumor was noted to be positive for PD-L1 expression at 5%. 2. He was deemed to be medically inoperable due to mutliple underlying medical illnesses/comorbidities. He was treated with SBRT to the lung lesion. He completed treatment on 03/11/2019 to a total dose of [address] on 04/22/2019 showed stable right upper lobe nodule with no evidence of disease progression. His other medical illnesses include: 3. Hypertension. 4. Hyperlipidemia. 5. Coronary artery disease with previous coronary artery bypass. 6. Atrial fibrillation. 7. Congestive heart failure. 8. He underwent placement of permanent pacemaker for sick sinus syndrome. 9. Carotid artery disease with previous bilateral carotid endarterectomy. 10. Peripheral arterial disease with arterial stent procedures to both legs. 11. Chronic kidney disease. 12. COPD. 13. Hypothyroidism. 14. GERD. 15. History of iron deficiency anemia. 16. Degenerative arthritis. 17. History of depression. He experienced a fairly rapid decline in his general condition with weakness/fatigue, anorexia, and weight loss. He also developed hoarseness. The clinical picture appeared very suspicious for progression of the lung cancer. However, his restaging PET/CT on 08/29/2019 showed significant improvement in the right upper lobe malignancy with no areas of abnormal uptake to suggest metastatic disease or other evidence of disease progression. His symptoms have since then shown some improvement, though he continues to have fairly marginal performance status. Plan: He will continue on observation/expectant management for the lung cancer. With his creatinine elevated and his potassium in the upper normal range, he may be able to stop his potassium supplement. He may also potentially benefit with an increase in his citalopram dosage. If he continues to have issues with anorexia/weight loss, he also could potentially benefit with a trial of Megace suspension at a low dosage (5 mL daily). At this point I will plan a follow-up visit with restaging chest CT in 6 months. In the meantime, he will continue follow-up with Dr. Youssef for the bladder cancer, and I also will recheck a basic metabolic profile with a magnesium level in 1 month. Signed By: Holden Boss M.D. <<Signature on File>>
== END 2019-09-04 16:00 | disposition home or self-care (01) ==
PROVIDERS: Family Provider Internal Medicine; PCP Internal Medicine; Visit Provider Internal Medicine Medical Oncology
DX: C34.11 Malignant neoplasm of upper lobe, right bronchus or lung (principal); C67.9 Malignant neoplasm of bladder, unspecified; E03.9 Hypothyroidism, unspecified; J43.9 Emphysema, unspecified; I48.91 Unspecified atrial fibrillation; I13.0 Hypertensive heart and chronic kidney disease with heart failure and stage 1 through stage 4 chronic kidney disease, or unspecified chronic kidney disease; N18.9 Chronic kidney disease, unspecified; I50.9 Heart failure, unspecified; I25.10 Atherosclerotic heart disease of native coronary artery without angina pectoris; M19.90 Unspecified osteoarthritis, unspecified site; F32.9 Major depressive disorder, single episode, unspecified; K21.9 Gastro-esophageal reflux disease without esophagitis; E78.5 Hyperlipidemia, unspecified; G62.9 Polyneuropathy, unspecified; I27.20 Pulmonary hypertension, unspecified; I73.00 Raynaud's syndrome without gangrene; G25.81 Restless legs syndrome; E55.9 Vitamin D deficiency, unspecified; Z79.891 Long term (current) use of opiate analgesic; Z87.891 Personal history of nicotine dependence; Z92.3 Personal history of irradiation; Z95.1 Presence of aortocoronary bypass graft; Z95.0 Presence of cardiac pacemaker
CPT/HCPCS: 99214

== ENCOUNTER → 2019-09-09 12:40 | Outpatient (BNVA) | payer MEDICARE, BC, SELFPAY | PROVIDERS: Family Provider Internal Medicine; PCP Internal Medicine; Visit Provider Otolaryngology | DX: R04.0 Epistaxis (principal); J34.2 Deviated nasal septum; R49.0 Dysphonia | CPT/HCPCS: 31575; 99214 ==

== ENCOUNTER → 2019-09-14 09:20 | Outpatient (BNVA) | payer MEDICARE, BC, SELFPAY | PROVIDERS: Family Provider Internal Medicine; PCP Internal Medicine; Visit Provider Urology | DX: C67.2 Malignant neoplasm of lateral wall of bladder (principal) | CPT/HCPCS: 81001 ==

== ENCOUNTER → 2019-09-24 14:03 | Outpatient (BNVA) | payer MEDICARE, BC, SELFPAY | PROVIDERS: Family Provider Internal Medicine; PCP Internal Medicine; Visit Provider Nurse Practitioner | DX: R05 Cough (principal); J90 Pleural effusion, not elsewhere classified; I51.7 Cardiomegaly; I70.90 Unspecified atherosclerosis; Z95.0 Presence of cardiac pacemaker | CPT/HCPCS: 71046; 85025 ==

== ENCOUNTER 2019-09-26 06:00 | Outpatient (CLI) | payer MEDICARE, BC, SELFPAY ==
--- NOTE | 2019-09-29 17:10 | ONC FU_ITS ---
Dr. Boss Patient Follow-Up Note Patient: Atif Claire Unit #: [id number]: [id number] Dicatated By: Holden Boss M.D.Date of Visit:Sep 26, 2019 Onc Med Follow-up/Prog Note Chief Complaint: Lung cancer. 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 By clinical evaluation his disease was stage IA (T1a, N0, M0) at initial diagnosis in January 2019. On 08/30/2018 he was admitted to the hospital with shortness of breath and hypoxia. He was admitted with a presumptive diagnosis of COPD exacerbation. His V/Q lung scan at that time showed low probability for pulmonary embolus. His chest CT at that time showed a somewhat spiculated right upper lobe pulmonary nodule measuring 13 mm. The appearance was felt to be concerning for malignancy. There were scattered mildly enlarged nonspecific mediastinal lymph nodes measuring up to 12 mm. A follow-up chest CT on 12/04/2018 showed increase in the size of the right apical pulmonary nodule, concurrently measuring 13 x 15 mm. And adjacent right upper lobe satellite nodule measuring 7.2 mm appeared unchanged. There was no mediastinal or hilar lymphadenopathy noted. Tree-in-bud infiltrates within the anterior right upper lobe had shown improvement, but with residual 4 mm noncalcified nodule. There were moderate chronic emphysematous changes. I had seen him initially on 12/24/2018. He had further evaluation with PET/CT on 01/17/2019. It confirmed the presence of an FDG avid spiculated right upper lobe pulmonary nodule measuring 1.2 cm, SUV 6.2, indicating a high probability of malignancy. A mildly active subaortic lymph node was felt to be most likely reactive. There was no other evidence for metastatic disease. He then underwent CT directed needle biopsy of the right upper lobe mass at [facility] on 02/13/2019. Pathology was consistent with moderately differentiated squamous cell carcinoma. The tumor was noted to be positive for PD-L1 expression at 5%. With those findings he was treated with SBRT to the lung lesion. He completed treatment on 03/11/2019 to a total dose of 4800 cGy. He tolerated it well. A repeat chest CT on 04/22/2019 showed residual right upper lobe spiculated nodule measuring 11 x 12 mm, similar to the prior CT and PET/CT studies. Mediastinal and hilar lymph nodes appeared stable in size with no evidence of disease progression. There was noted to be severe chronic emphysema. His other medical illnesses include atrial fibrillation, carotid stenosis, chronic kidney disease, chronic obstructive pulmonary disease, congestive heart failure, coronary artery disease, degenerative arthritis, depression, gastroesophageal reflux disease, hyperlipidemia, hypothyroidism, onychomycosis, peripheral artery disease, pulmonary hypertension, Raynauds, restless leg syndrome, sick sinus syndrome, and vitamin D deficiency. He also has a history of iron deficiency anemia. INTERIM HISTORY: I had seen him for a follow-up visit at [facility] on 08/21/2019. At that point he had experienced a significant decilne in performance status with progressive weakness and anorexia/weight loss. He also complained of hoarseness. The clinical findings were highly suspicious for recurrence/progression of the lung cancer. I had recommended a restaging PET/CT. That study was done on 08/29/2019. It showed significant improvement in the right upper lobe malignancy measuring 1.0 cm with SUV 2.0. Mild activity and subaortic mediastinal lymph nodes was noted to have resolved. There were no other areas of abnormal uptake or other findings to suggest metastatic disease. I have been seen him for a follow-up visit on 09/04/2019. At that point he was feeling somewhat better, and he had begun to regain some weight. He continued on observation/expectant management for the lung cancer. He is seen for a follow-up visit at [facility]. He recently has had antibiotic therapy for a respiratory infection, and with that illness there has been some decline again in his activity tolerance. His ECOG score is 3. However, he has been eating better, and he has continued to gain weight. He does not have fever or night sweats. He still has hoarseness, which comes and goes. He still has cough with the respiratory infection and he has shortness of breath with activity. He does not complain of chest pain. He has no GI or complaints. He has pain in his right shoulder following rotator cuff surgery. He has no other joint or bone pain. He has numbness/tingling in his feet. Medications: Acetaminophen 1 - 2 Tablet (of 500 mg) Oral q 4 to 6 hours PRN, Albuterol Sulfate 1 ((2.5 mg/3ml) 0.083%) Nebulization solution Inhalation q 4 hours, Amiodarone HCl 1 Tablet (of 100 mg) Oral daily, Antacid 10 - 20 mL (of 200-200-20 mg/5mL) Suspension Oral four times a day PRN, Calcium 1 Tablet (of 500 mg) Tablet, chewable Oral PRN, CertaVite Senior/Antioxidant 1 Tablet Oral daily, Citalopram Hydrobromide 1 Tablet (of 10 mg) Oral daily, Clopidogrel Bisulfate 1 Tablet (of 75 mg) Oral daily, Cough Syrup 10 mL (of 200 mg/5mL) Syrup Oral q 4 hours PRN, [employer] Milk of Magnesia 30 mL (of 1200 mg/15mL) Suspension Oral daily PRN, DOK 1 Capsule (of 100 mg) Oral b.i.d., Doxycycline Hyclate 1 (100 mg) Capsule Oral b.i.d. for 10 days, Esomeprazole Magnesium 1 (40 mg) Capsule Delayed Release Oral daily, Furosemide 1 Tablet (of 20 mg) Oral daily PRN, Furosemide 1 Tablet (of 40 mg) Oral b.i.d., Levothyroxine Sodium 1 Tablet (of 112 mcg) Oral daily, Loratadine 0.5 Tablet (of 10 mg) Oral daily, Magnesium Oxide 1 Tablet (of 400 mg) Oral b.i.d., Nitroglycerin 1 Tablet (of 0.4 mg) Tablet, sublingual Sublingual PRN, Ondansetron HCl 1 Tablet (of 8 mg) Oral t.i.d. PRN, oxyCODONE-Acetaminophen 1 Tablet (of 5-325 mg) Oral q 4 hours PRN, Phenazopyridine HCl 1 Tablet (of 200 mg) Oral q 4 hours PRN, Potassium Chloride ER 2 Tablet (of 10 meq) Tablet, controlled release Oral b.i.d., ProAir HFA 2 puff(s) (of 108 (90 base) mcg/act) Aerosol, solution Inhalation q 4 hours PRN, Rosuvastatin Calcium 1 Tablet (of 5 mg) Oral at bedtime, Spiriva Respimat 2 Puff(s) (of 2.5 mcg/act) Aerosol, solution Inhalation at bedtime, Tussin 10 mL (of 100 mg/5mL) Syrup Oral q 4 hours PRN, Wixela Inhub 1 Puff(s) (of 500-50 mcg/dose) Aerosol Powder, Breath Activated Inhalation b.i.d. Allergies: Ampicillin, Penicillins, and Sulfa Antibiotics. Review of Systems: Constitutional - He is feeling better generally, though his activity is still limited. His appetite is good. He has continued to gain weight. No fever or night sweats. ECOG score is 3, ENMT - He has a runny nose. No mouth sores. He still has some hoarseness but he has no difficulty swallowing, Hematologic/Lymphatic - He has easy bruising and he also bleeds easily, Respiratory - He has shortness of breath with activity. He has recently been on antibiotic for a respiratory tract infection. His still has cough. No pleuritic pain or hemoptysis, Cardiovascular - No angina pain. No palpitations, Gastrointestinal - No nausea or vomiting. No heartburn or acid reflux. No diarrhea or constipation. No blood in the stool or black stools, Genitourinary (M) - No dysuria or hematuria. He has urinary frequency. No urgency or incontinence, Musculoskeletal - He has pain in his right shoulder. He has no other joint or bone pain, Integumentary - No skin complications, Neurologic - No headache or dizziness. He has numbness in his feet. He has Raynaud's and he wears a glove on his right hand, Psychiatric - He has some depression. No insomnia. Vital Signs: His recent blood pressure was 92/58, but similar to other recent readings. His weight was 144 pounds. Physical Examination: Constitutional - He appears somewhat weak generally, Eyes - Sclerae nonicteric. Conjunctivae clear, ENMT - No lesions noted in the oral cavity, Hematologic/Lymphatic - No cervical, clavicular, or axillary adenopathy, Respiratory - Lungs show coarse breath sounds bilaterally. There are a few scattered rales. There is no wheezing, Cardiovascular - Heart rhythm is regular. There is no murmur, gallop, or rub noted, Abdomen - Soft. Liver and spleen are not enlarged. There is no abdominal mass or ascites noted and there is no inguinal adenopathy, Extremities - There are venous stasis changes bilaterally. There is just slight edema, Neurologic - No focal neurologic deficits noted. Lab/Imaging: Test performed on Sep 11, 2019 04:06 Magnesium 2.4 mg/dL Glucose 88 mg/dL BUN 21 mg/dL Creatinine 1.4 mg/dL Sodium 140 mmol/L Potassium 4.6 mmol/L Chloride 102 mmol/L CO2 30.7 mmol/L Calcium 9.0 mg/dL Test performed on Aug 25, 2019 08:30 Ferritin 121 ng/mL TSH 3.90 uIU/mL Vitamin B12 728 pg/mL Anion Gap 17.4 Cr Clearance (Est) 27.20 mL/min Protein, Total 6.8 g/dL Albumin 4.2 g/dL Globulin 2.6 g/dL Bilirubin, Total 0.9 mg/dL ALT (SGPT) 17 U/L AST (SGOT) 23 U/L Alkaline Phosphatase 95 IU/L WBC 10.8 10 3/uL RBC 4.80 10 6/uL HGB 14.0 g/dL HCT 45.4 % MCV 94.6 fL MCH 29.2 pg MCHC 30.8 g/dL RDW 25.6 % Platelet Count 131 10 3/cmm MPV 11.8 fL Neutrophils 7.7 10 3/uL Lymphocytes 1.6 10 3/uL Monocytes 1.1 10 3/uL Eosinophils 0.2 10 3/uL Basophils 0.0 10 3/uL Neutrophil % 71.8 % Lymphocyte % 15.1 % Monocyte % 10.2 % Eosinophil % 1.9 % Basophils % 0.4 % Impression: 1. 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 By clinical evaluation his disease was stage IA (T1a, N0, M0) at initial diagnosis in January 2019. The tumor was noted to be positive for PD-L1 expression at 5%. 2. He was deemed to be medically inoperable due to mutliple underlying medical illnesses/comorbidities. He was treated with SBRT to the lung lesion. He completed treatment on 03/11/2019 to a total dose of [address] on 04/22/2019 showed stable right upper lobe nodule with no evidence of disease progression. His other medical illnesses include: 3. Hypertension. 4. Hyperlipidemia. 5. Coronary artery disease with previous coronary artery bypass. 6. Atrial fibrillation. 7. Congestive heart failure. 8. He underwent placement of permanent pacemaker for sick sinus syndrome. 9. Carotid artery disease with previous bilateral carotid endarterectomy. 10. Peripheral arterial disease with arterial stent procedures to both legs. 11. Chronic kidney disease. 12. COPD. 13. Hypothyroidism. 14. GERD. 15. History of iron deficiency anemia. 16. Degenerative arthritis. 17. History of depression. He experienced a fairly rapid decline in his general condition with weakness/fatigue, anorexia, and weight loss. He also developed hoarseness. The clinical picture appeared very suspicious for progression of the lung cancer. However, his restaging PET/CT on 08/29/2019 showed significant improvement in the right upper lobe malignancy with no areas of abnormal uptake to suggest metastatic disease or other evidence of disease progression. His symptoms have since then shown some improvement, and he has been regaining his weight. He continues to have limited activity tolerance, but some of that may be related to a recent respiratory tract infection. Plan: He will continue on observation/expectant management for the lung cancer. His medications remain the same. I will plan to see him again with a repeat chest CT at a 3-month interval from the PET/CT. Signed By: Holden Boss M.D. <<Signature on File>>
== END 2019-09-29 14:29 | disposition home or self-care (01) ==
LOC: ONCMED 10-06 13:47
PROVIDERS: Family Provider Internal Medicine; PCP Internal Medicine; Visit Provider Internal Medicine Medical Oncology
DX: C34.11 Malignant neoplasm of upper lobe, right bronchus or lung (principal); E78.5 Hyperlipidemia, unspecified; I25.10 Atherosclerotic heart disease of native coronary artery without angina pectoris; I50.9 Heart failure, unspecified; I48.91 Unspecified atrial fibrillation; I73.9 Peripheral vascular disease, unspecified; I13.0 Hypertensive heart and chronic kidney disease with heart failure and stage 1 through stage 4 chronic kidney disease, or unspecified chronic kidney disease; N18.9 Chronic kidney disease, unspecified; J44.9 Chronic obstructive pulmonary disease, unspecified; E03.9 Hypothyroidism, unspecified; K21.9 Gastro-esophageal reflux disease without esophagitis; M19.90 Unspecified osteoarthritis, unspecified site; Z92.3 Personal history of irradiation; Z95.1 Presence of aortocoronary bypass graft; Z95.0 Presence of cardiac pacemaker

== ENCOUNTER 2019-09-30 12:15 | Outpatient (CLI) | payer MEDICARE, BC, SELFPAY ==
[2019-09-30 15:02] LABS: Blood Urea Nitrogen 27 mg/dL (8-23); Calcium 9.2 mg/dL (8.5-10.5); Carbon Dioxide 27 mmol/L (22-29); Chloride 101 mmol/L (98-107); Glucose 139 mg/dL (65-115); Magnesium 2.4 mg/dL (1.7-2.3); Osmolality Calculated 291 mOsm/kg (285-295); Sodium 141 mmol/L (136-145)
== END 2019-09-30 12:16 | disposition home or self-care (01) ==
LOC: ONCMED 16:19
PROVIDERS: Family Provider Internal Medicine; PCP Internal Medicine; Visit Provider Internal Medicine Medical Oncology
DX: I50.9 Heart failure, unspecified (principal)
CPT/HCPCS: 80048; 83735